=== PATIENT | male | born 1970 | race Caucasian/White ===

== ENCOUNTER 2018-06-02 11:49 | Inpatient (IN) | payer MEDICAID, SELFPAY ==
[2018-06-02] VITALS (12 sets, daily range): BP systolic 99–118; BP diastolic 60–67; PULSE 74–110; RESP 16–19; TEMP 37–39.4; O2SAT 93–98; BMI 27.7; BMI 27.8; BMI 27.5
--- NOTE | 2018-06-02 12:12 | RAD_ITS ---
STUDY: X-RAY CHEST REASON FOR EXAM: Male, 48 years old. One week history of vomiting. Fever. TECHNIQUE: PA and lateral views of the chest. COMPARISON: Comparison is made with prior study dated December 31, 2014. FINDINGS: Hyperinflation. There is evidence of infiltration in the superior segment of the left lower lobe. Radiographic follow-up until clearing is recommended. There is no demonstrated pleural abnormality. Normal size heart. Normal mediastinum and daria. Normal visualized pulmonary arteries. Normal visualized aortic arch and descending thoracic aorta. Normal visualized thoracic spine. Normal visualized ribs, clavicles, and shoulders. There is no demonstrated abnormality of the visualized soft tissue structures of the upper abdomen. RAD/Chest PA and Lateral IMPRESSION: Infiltration in the superior segment of the left lower lobe. Radiographic follow-up until clearing is recommended. Electronically Signed: Eliel Preston, at 13:10 EDT , Service support ,
[2018-06-02] MEDS: Ibuprofen 600 MG Tablet PO (12:25)
--- NOTE | 2018-06-02 13:39 | ED.VISSUMM ---
- ER Visit Summary Date of Service: 06/02/18 Chief Complaint: Fever History of Present Illness: The patient is a 48 M with fever which has been getting worse over the past week. It is associated with cough, headaches, and body aches. He tried to take Tylenol this morning but threw it up. Patient has a history of asthma and fibromyalgia. He is a smoker. Physical Examination: 101.3 degrees. Heart rate 110. Otherwise vitals normal. Patient appears unwell and uncomfortable but not toxic or in distress. HEENT exam is unremarkable. Heart is tachycardic but regular. Lungs are clear. Abdomen is soft and nontender. Skin appears normal. Test Results: Chest x-ray showed a left upper lobe pneumonia and his influenza test was negative. Emergency Department Course and Treatment: I was initially concerned the patient might have influenza, but his rapid test was negative and his x-ray did show an infiltrate. I reevaluated the patient after he had some Motrin and he had a continued fever and tachycardia. I was concerned he might be septic. I added on some labs as well as a fluid bolus and cultures. I treated him with a dose of Levaquin. Will reevaluate. Lactic acid was 1.1. White count 14.3 and sodium 134. Total bilirubin 2.0. Cultures pending. Patient's heart rate improved, but his mean arterial pressure ranged from 61 to the 80s. He appears well and is perfusing well. I asked him if he ever had low blood pressures and he said no. He is not treated for hypertension however. I ordered an additional 2 L fluid bolus. Although the patient appears well, he has a pneumonia and meets sepsis criteria and he has had some low blood pressures. I will contact the hospitalist for further care. Treatment Plan: As above Disposition: Admission Impression: 1. Community acquired pneumonia 2. Sepsis This note was generated with [employer] dictation software. It may contain incorrect words, spelling, and punctuation that were not noted in review of the chart prior to signing ED Disposition - Plan for ED Patient: Referrals: Raheem Reed DO [Primary Care Provider] -
[2018-06-02] MEDS: 0.9% Normal Saline 1,000 ML 999 ML IV ×3 (13:55→16:58)
[2018-06-02] MEDS: levoFLOXacin IV 750 MG/150 ML BAG 100 MG IV (13:55)
[2018-06-02 14:25] LABS: Absolute Lymphocyte Count 0.92 X10^3/ul (0.83-4.51); Absolute Neutrophil Count 11.9 X10^3/uL (2.0-7.7); Basophil# 0.03 X10^3/uL; Basophil% 0.2 % (0-1); Hematocrit 37.1 % (40-54); Hemoglobin 13.4 g/dl (13.0-16.5); Lymphocyte # 0.92 X10^3/ul (4.0); Lymphocyte % 6.4 % (19-41); Mean Corp Hgb Conc 36.1 g/gl (32-36); Mean Corpuscular Hgb 32.2 pg (27.0-32.0); Mean Corpuscular Volume 89.2 fL (80-94); Mean Platelet Vol. 9.6 fl (6.2-12.0); Monocyte# 1.43 X10^3/uL; Neutrophil # 11.87 X10^3/uL (2.7-7.7); Neutrophil % 83.1 % (47-70); Platelet Count 204 K/mm3 (150-450); RBC Distribution Width CV 12.6 % (11.6-14.6); RBC Distribution Width SD 40.9 fl (35.1-43.9); Red Blood Count 4.16 M/mm3 (4.6-6.2); White Blood Count 14.3 K/mm3 (4.4-11.0)
[2018-06-02 14:27] LABS: POSITIVE COUNT NO; POSITIVE DIFFERENTIAL NO; POSITIVE MORPHOLOGY NO
[2018-06-02 14:38] LABS: AST(SGOT) 17 U/L (15-37); Alanine Aminotransfer ALT/SGPT 30 U/L (16-61); Albumin, Serum 3.2 g/dL (3.2-5.0); Alkaline Phosphatase 71 U/L (45-117); Anion Gap 8 (5-15); BUN 10 mg/dL (7-18); BUN/Creat Ratio 11.4 RATIO (10-20); Calcium,Total 8.2 mg/dL (8.5-10.1); Chloride 101 mmol/L (98-107); Creatinine, Serum 0.88 mg/dL (0.70-1.30); EST Glomerular Filtration Rate 100 mL/min (>60); Est Glom Filt Rate - Afr Amer 121 mL/min (>60); Estimated Creatinine Clearance 104.89 ml/min; Globulin 3.2 g/dL (2.2-4.2); Glucose 103 mg/dL (74-106); Protein, Total 6.4 g/dL (6.4-8.2); Sodium Level 134 mmol/L (136-145)
[2018-06-02 14:41] LABS: Lactic Acid 1.1 mmol/L (0.4-2.0)
--- NOTE | 2018-06-02 16:00 | HP.PCM_ITS ---
Problem List (1) Community acquired pneumonia of left lower lobe of lung Status: Acute (2) Mild intermittent chronic asthma without complication Status: Chronic (3) Fibromyalgia Status: Chronic History of Present Illness Date of Admission: 06/02/18 Chief Complaint: URI symptoms for about 1 week The patient is a 48 year old M with history of chronic mild intermittent asthma on fluticasone and albuterol inhaler since childhood came to ED with 7 days history of fever, chills, dry cough, left-sided pleuritic chest pain and sore throat. This started about a week ago last Friday and got severe on Friday for which she went to urgent care and was sent home with instructions to go to ER if get worse. Patient again went to urgent care today as he felt more fever and chills and cough and was given Protonix, Zofran and enteric bacterial G panel was ordered. Then patient came to ED. He feels chest pain mainly on deep inspiration and cough. Patient denies previous history of pneumonia. Chest x-ray shows infiltrate in the superior segment of left lower lobe. In ED, patient was found febrile, T-max 102.4 Fahrenheit, Blood pressure was low 99/64 and 1 seen systolic 80s for which 3 L of normal saline bolus was ordered. Patient given Levaquin 750 mg IV 1 dose and further admitted. As per the patient, systolic blood pressure is well in 100s although he does not remember exactly. [] Past Medical History Past Medical History (Chronic Problems): Chronic Problems Mild intermittent chronic asthma without complication (Chronic) Fibromyalgia (Chronic) Allergies cat dander Allergy (Verified 06/02/18 15:38) itching, shortness of breath dog dander Allergy (Verified 06/02/18 15:38) Unknown bupropion HCl [From Wellbutrin] Adverse Reaction (Verified 06/02/18 15:27) anxiety montelukast [From Singulair] Adverse Reaction (Verified 06/02/18 15:27) MS-like symptoms, difficulty w/ balance and walking Home Medications: Ambulatory Orders Medication Instructions Recorded Albuterol Aerosols [Ventolin 2.5 mg INHALATION Q4H PRN PRN 06/02/18 Aerosols] Albuterol Inhaler [Ventolin Hfa 2 puff INHALATION Q4H PRN PRN 06/02/18 (SP)] Amitriptyline HCl [Elavil] 25 mg PO QHS 06/02/18 Cholecalciferol (VIT D3) [Vitamin 2,500 unit PO DAILY 06/02/18 D] Escitalopram Oxalate [Lexapro] 10 mg PO DAILY 06/02/18 Fluticasone Furoate [Arnuity 1 puff INHALATION QHS 06/02/18 Ellipta] Multivitamin [Multivitamins] 1 each PO DAILY 06/02/18 Ondansetron HCl [Zofran] 4 mg PO Q8H PRN PRN 06/02/18 Pantoprazole Sodium [Protonix] 40 mg PO DAILY 06/02/18 Smoking Status: Former smoker - *Family History Paternal History Items: COPD - Emphysema with history of heavy smoking Review of Systems Constitutional: Reports: Chills, Fever, Weakness. Denies: Weight Change HEENT: Reports: Nasal Congestion, Post Nasal Drip, Sore Throat. Denies: Head Aches, Sinus Congestion, Sinus Drainage Cardiovascular: Reports: Chest Pain. Denies: Palpitations Respiratory: Reports: Cough, Pleuritic Pain. Denies: Sputum production Gastrointestinal: Reports: Diarrhea - 1 or 2 instances of diarrhea in the last few days, Nausea, Vomiting. Denies: Abdominal Pain Genitourinary: Denies: Dysuria Musculoskeletal: Denies: Joint Pain, Joint Tenderness Skin: Denies: Rash, Wounds Neurological: Denies: Numbness, Tingling, Focal weakness Psychiatric: Denies: Anxiety, Depression, Homicidal Ideations, Suicidal Ideations Hematologic/ Lymphatic: Denies: Easy Bruising, Easy Bleeding VTE Information - Inpt Only VTE Present on Admission: No VTE Mechan Device Prophylaxis: None VTE Pharm Prophylaxis ordered?: Yes Patient Problems: Active and Suspected Problems Community acquired pneumonia of left lower lobe of lung (Acute) - Physical Exam General: Alert, Oriented x3, Cooperative HEENT: Atraumatic, PERRLA, EOMI, Normocephalic Neck: Supple, No JVD, Negative Carotid Bruits Lungs: Diminished - Air entry is diminished mainly in left posterior half of lung., Rales - Coarse crepitation present in left posterior half of lung Cardiovascular: Regular rate, Regular Rhythm, Normal S1, Normal S2, No murmurs Abdomen: Bowel Sounds Present, Soft, Non Tender, Non-Distended Extremities: No edema, Capillary Refill Less than 3 Seconds Skin: No rashes, No breakdown Musculoskeletal: No Tenderness to Palpation of Joints or Extremities, Arthritic Changes Neurological: Cranial nerves II-XII grossly intact Psych/Mental Status: Normal Affect, Appropriate Vital Signs Temp Pulse Resp BP Pulse Ox 99.3 F H 75 16 101/67 96 06/02/18 15:15 06/02/18 15:52 06/02/18 15:52 06/02/18 15:52 06/02/18 15:15 Oxygen Delivery Method Room Air Weight: 188 lb Body Mass Index (BMI) 27.7 Microbiology Past 72 Hours 06/02/18 12:30 Influenza Types A,B Direct FA ([facility]ARD) - Final Mucosa - Nose Laboratory Tests Past 24 Hrs 06/02/18 06/02/18 06/02/18 13:00 13:56 13:56 WBC 14.3 H RBC 4.16 L Hgb 13.4 Hct 37.1 L MCV 89.2 MCH 32.2 H MCHC 36.1 H RDW 12.6 RDW Differential 40.9 Plt Count 204 MPV 9.6 Immature Gran % (Auto) 0.300 Neut % (Auto) 83.1 H Lymph % (Auto) 6.4 L [place] % (Auto) 10.0 Eos % (Auto) 0.0 Baso % (Auto) 0.2 Absolute Neuts (auto) 11.9 H Absolute Lymphs (auto) 0.92 Total Counted Not Reportable Sodium 134 L Potassium 4.0 Chloride 101 Carbon Dioxide 25.0 Anion Gap 8 BUN 10 Creatinine 0.88 Estim Creat Clear Calc 104.89 Est GFR (MDRD) Af Amer 121 Est GFR (MDRD) Non-Af 100 BUN/Creatinine Ratio 11.4 Glucose 103 Lactic Acid 1.1 Calcium 8.2 L Total Bilirubin 2.00 H AST 17 ALT 30 Alkaline Phosphatase 71 Total Protein 6.4 Albumin 3.2 Globulin 3.2 Albumin/Globulin Ratio 1.0 Assessment/Plan All Active Problems Community acquired pneumonia of left lower lobe of lung (Acute) The patient is a 48 year old M with history of chronic mild intermittent asthma on fluticasone and albuterol inhaler since childhood came to ED with 7 days history of fever, chills, dry cough, left-sided pleuritic chest pain and sore throat. This started about a week ago last Friday and got severe on Friday for which she went to urgent care and was sent home with instructions to go to ER if get worse. Patient again went to urgent care today as he felt more fever and chills and cough and was given Protonix, Zofran and enteric bacterial G panel was ordered. Then patient came to ED. He feels chest pain mainly on deep inspiration and cough. Patient denies previous history of pneumonia. Chest x-ray shows infiltrate in the superior segment of left lower lobe. In ED, patient was found febrile, T-max 102.4 Fahrenheit, Blood pressure was low 99/64 and 1 seen systolic 80s for which 3 L of normal saline bolus was ordered. Patient given Levaquin 750 mg IV 1 dose and further admitted. As per the patient, systolic blood pressure is well in 100s although he does not remember exactly. [] 1. Severe sepsis (fever, tachypnea, leukocytosis with hypotension recovered with IV fluid) secondary to left lower lobe community-acquired pneumonia: Patient is being admitted in PCU with normal saline IV bolus running. Started on IV Rocephin and Zithromax. Bronchodilator as needed. Pneumonia workup including blood cultures x2, urinary antigens, sputum culture and UA. Respiratory panel ordered 2. Nausea/vomiting and diarrhea possible related to stomach flu/viral gastroenteritis: IV fluid resuscitation. Patient does not have abdominal pain and diarrhea has resolved. No GI bleed. 3. Chronic intermittent mild asthma: Hold fluticasone inhaler in view of pneumonia and severe sepsis. Bronchodilator as needed. Oxygen therapy to keep pulse ox more than 90%. 4. Fibromyalgia:, Mild anxiety and depression: Continue amitriptyline. Hold Lexapro Until patient is on Zithromax. 5. DVT prophylaxis: Lovenox 40 mg subcu daily Code Visit Inpatient E&M: 58848 In Hosp L3
--- NOTE | 2018-06-02 16:24 | EKG12_ITS ---
Test Reason : ADMISSION Blood Pressure : / mmHG Vent. Rate : 093 BPM Atrial Rate : 093 BPM P-R Int : 150 ms QRS Dur : 092 ms QT Int : 358 ms P-R-T Axes : 064 -05 004 degrees QTc Int : 445 ms Normal sinus rhythm Low voltage QRS Borderline ECG When compared with ECG of 20-JAN-2014 04:26, Nonspecific T wave abnormality now evident in Inferior leads Confirmed by MICHAEL GREENWOOD, NICKIE ([id number]), tape editor ADELAIDE DUKES ([id number]) on 06/08/2018 5:20:51 PM Referred By: MARIANELA Confirmed By:NICKIE RODRIGUEZ MD
[2018-06-02] MEDS: 0.9% Normal Saline 1,000 ML 150 ML IV (18:09)
[2018-06-02] MEDS: guaiFENesin 1,200 MG Tablet 1200 MG PO (18:20)
[2018-06-02] MEDS: oxyCODONE 5 MG Tablet PO (19:40)
[2018-06-02 19:49] LABS: Color, Urine Yellow (Yellow); Glucose, Dipstick Normal (Normal); Ketone-Dipstick Negative (Negative); Leukocyte Esterase-Dipstick Negative /ul (Negative); Nitrite-Dipstick Negative (Negative); Occult Blood-Urine 25 /ul (Negative); Protein-Dipstick Negative (Negative); Urine Bilirubin Dipstick Negative (Negative); Urine Clarity Clear (Clear); Urine Urobilinogen Normal (Normal); Urine pH 6.5 (5.0 - 8.0)
[2018-06-02] MEDS: Famotidine 20 MG Tablet PO (21:13)
[2018-06-02] MEDS: Acetaminophen 325 MG Tablet 650 MG PO (21:13)
[2018-06-02] MEDS: Amitriptyline 25 MG Tablet PO (21:13)
[2018-06-03] MEDS: 0.9% Normal Saline 1,000 ML 150 ML IV ×4 (00:25→20:45)
[2018-06-03 02:56] VITALS: BP 121/76; PULSE 91; RESP 16; TEMP 37.1; O2SAT 93
[2018-06-03] MEDS: oxyCODONE 5 MG Tablet PO ×2 (05:34→15:31)
[2018-06-03] MEDS: Enoxaparin 40 MG/0.4 ML Syringe SC (05:35)
[2018-06-03 08:26] VITALS: BP 122/73; PULSE 90; RESP 16; TEMP 37.7; O2SAT 98
[2018-06-03] MEDS: Multivitamins,Therapeutic Tablet 1 TABLET PO (08:40)
[2018-06-03] MEDS: guaiFENesin 1,200 MG Tablet 1200 MG PO ×2 (08:40→21:45)
[2018-06-03] MEDS: Famotidine 20 MG Tablet PO ×2 (08:40→21:45)
[2018-06-03] MEDS: Ceftriaxone 1 GM/50 ML BAG IV (08:41)
[2018-06-03] MEDS: Oseltamivir Phosphate 75 MG Capsule PO ×2 (10:59→21:45)
[2018-06-03 11:42] LABS: Absolute Neutrophil Count 9.4 X10^3/uL (2.0-7.7); Basophil# 0.04 X10^3/uL; Basophil% 0.3 % (0-1); Eosinophil# 0.03 X10^3/uL; Eosinophils% 0.2 % (0-5); Hematocrit 33.7 % (40-54); Hemoglobin 11.4 g/dl (13.0-16.5); Lymphocyte % 13.8 % (19-41); Mean Corp Hgb Conc 33.8 g/gl (32-36); Mean Corpuscular Hgb 30.4 pg (27.0-32.0); Mean Corpuscular Volume 89.9 fL (80-94); Mean Platelet Vol. 9.2 fl (6.2-12.0); Monocyte# 1.08 X10^3/uL; Monocyte% 8.8 % (0-10); Neutrophil # 9.41 X10^3/uL (2.7-7.7); Neutrophil % 76.5 % (47-70); Platelet Count 216 K/mm3 (150-450); RBC Distribution Width SD 42.8 fl (35.1-43.9); Red Blood Count 3.75 M/mm3 (4.6-6.2); White Blood Count 12.3 K/mm3 (4.4-11.0)
[2018-06-03 11:43] LABS: POSITIVE COUNT NO; POSITIVE DIFFERENTIAL NO; POSITIVE MORPHOLOGY NO
[2018-06-03 11:57] LABS: Anion Gap 3 (5-15); BUN 7 mg/dL (7-18); BUN/Creat Ratio 10.7 RATIO (10-20); Calcium,Total 7.4 mg/dL (8.5-10.1); Chloride 107 mmol/L (98-107); Creatinine, Serum 0.66 mg/dL (0.70-1.30); EST Glomerular Filtration Rate 139 mL/min (>60); Est Glom Filt Rate - Afr Amer 169 mL/min (>60); Estimated Creatinine Clearance 139.85 ml/min; Glucose 127 mg/dL (74-106); Magnesium 1.8 mg/dL (1.6-2.6); Potassium 3.4 mmol/L (3.5-5.1); Sodium Level 136 mmol/L (136-145)
--- NOTE | 2018-06-03 12:46 | PCM.PROGNOTE ---
<Harsha Gastelum - Last Filed: 06/03/18 12:46> Patient Problems: Active and Suspected Problems Community acquired pneumonia of left lower lobe of lung (Acute) Subjective: Pt with ongoing fevers, last 100.8 last night 2156, Tmax 103. Nonproductive cough. Mild dyspnea, not requiring O2. No CP. Fatigue and body aches continue. No LE edema. GI symptoms resolved. - Physical Exam General: Alert, Oriented x3, Cooperative HEENT: Atraumatic, PERRLA, EOMI, Normocephalic Neck: Supple, No JVD, Negative Carotid Bruits Lungs: Rales Cardiovascular: Regular rate, No murmurs Abdomen: Bowel Sounds Present, Soft, Non Tender Extremities: No edema, Capillary Refill Less than 3 Seconds Skin: No rashes, No breakdown Musculoskeletal: No Tenderness to Palpation of Joints or Extremities Neurological: Cranial nerves II-XII grossly intact Psych/Mental Status: Normal Affect, Appropriate, Alert and oriented to time, place, person, mood and affect Vital Signs Temp Pulse Resp BP Pulse Ox 99.8 F H 90 16 122/73 H 98 06/03/18 08:26 06/03/18 08:26 06/03/18 08:26 06/03/18 08:26 06/03/18 08:26 Oxygen Delivery Method Room Air Weight: 186 lb 4.8 oz Body Mass Index (BMI) 27.5 Intake and Output for Last 24 Hours 06/01/18 06/02/18 06/03/18 23:59 23:59 23:59 Intake Total 3301 / 3301 2046 Balance 3301 / 3301 2046 Microbiology Past 72 Hours 06/02/18 20:30 Gram Stain - Final Sputum, Expectorated/Coughed Respiratory Culture - Preliminary Appears to be normal respiratory chandler. Further studies to follow. 06/02/18 17:15 Respiratory Panel (PCR) - Final Mucosa - Nasopharyngeal Influenza A (Subtype H1) 06/02/18 19:20 Legionella Antigen - Final Urine, Random 06/02/18 19:20 Streptococcus pneumoniae Antigen (M - Final Urine, Clean Catch 06/02/18 12:30 Influenza Types A,B Direct FA ([facility]) - Final Mucosa - Nose Laboratory Tests Past 24 Hrs 06/02/18 06/02/18 06/02/18 13:00 13:56 13:56 WBC 14.3 H RBC 4.16 L Hgb 13.4 Hct 37.1 L MCV 89.2 MCH 32.2 H MCHC 36.1 H RDW 12.6 RDW Differential 40.9 Plt Count 204 MPV 9.6 Immature Gran % (Auto) 0.300 Neut % (Auto) 83.1 H Lymph % (Auto) 6.4 L [place] % (Auto) 10.0 Eos % (Auto) 0.0 Baso % (Auto) 0.2 Absolute Neuts (auto) 11.9 H Absolute Lymphs (auto) 0.92 Total Counted Not Reportable Sodium 134 L Potassium 4.0 Chloride 101 Carbon Dioxide 25.0 Anion Gap 8 BUN 10 Creatinine 0.88 Estim Creat Clear Calc 104.89 Est GFR (MDRD) Af Amer 121 Est GFR (MDRD) Non-Af 100 BUN/Creatinine Ratio 11.4 Glucose 103 Lactic Acid 1.1 Calcium 8.2 L Magnesium Total Bilirubin 2.00 H AST 17 ALT 30 Alkaline Phosphatase 71 Total Protein 6.4 Albumin 3.2 Globulin 3.2 Albumin/Globulin Ratio 1.0 Urine Color Urine Clarity Urine pH Ur Specific [place] Urine Protein Urine Glucose (UA) Urine Ketones Urine Occult Blood Urine Nitrite Urine Bilirubin Urine Urobilinogen Ur Leukocyte Esterase 06/02/18 06/03/18 06/03/18 19:20 11:22 11:22 WBC 12.3 H RBC 3.75 L Hgb 11.4 L Hct 33.7 L MCV 89.9 MCH 30.4 MCHC 33.8 RDW 13.0 RDW Differential 42.8 Plt Count 216 MPV 9.2 Immature Gran % (Auto) 0.400 Neut % (Auto) 76.5 H Lymph % (Auto) 13.8 L [place] % (Auto) 8.8 Eos % (Auto) 0.2 Baso % (Auto) 0.3 Absolute Neuts (auto) 9.4 H Absolute Lymphs (auto) 1.70 Total Counted Not Reportable Sodium 136 Potassium 3.4 L Chloride 107 Carbon Dioxide 26.0 Anion Gap 3 L BUN 7 Creatinine 0.66 L Estim Creat Clear Calc 139.85 Est GFR (MDRD) Af Amer 169 Est GFR (MDRD) Non-Af 139 BUN/Creatinine Ratio 10.7 Glucose 127 H Lactic Acid Calcium 7.4 L Magnesium 1.8 Total Bilirubin AST ALT Alkaline Phosphatase Total Protein Albumin Globulin Albumin/Globulin Ratio Urine Color Yellow Urine Clarity Clear Urine pH 6.5 Ur Specific [place] 1.010 Urine Protein Negative Urine Glucose (UA) Normal Urine Ketones Negative Urine Occult Blood 25 H Urine Nitrite Negative Urine Bilirubin Negative Urine Urobilinogen Normal Ur Leukocyte Esterase Negative Medical Necessity - Tobacco Use Smoking Status: Former smoker Tobacco Use: Cigarettes, Pipe Assessment/Plan All Active Problems Community acquired pneumonia of left lower lobe of lung (Acute) 1. Acute sepsis 2/2 Influenza A and community acquired pna - continue rocephin/azithro/tamiflu. Got 1 dose levaquin in the ER. WBCs improved. Fevers last night. Sputum with normal resp chandler, urine antigens neg, blood cultures pending, no sputum provided. Provide PEP therapy. 2. Low K - replete, supplement mag (1.8) 3. Anx/Depression/Fibromyalgia- lexapro, elavil 4. Hx Asthma - continue aerosols. DVT ppx: lovenox DC planning: likely home tomorrow with no needs This patient was seen by Harsha Gastelum PA-C under the supervision of Dr. Rodriguez <Lex Rodriguez - Last Filed: 06/03/18 13:56> - Physical Exam Vital Signs Temp Pulse Resp BP Pulse Ox 99.8 F H 90 16 122/73 H 98 06/03/18 08:26 06/03/18 08:26 06/03/18 08:26 06/03/18 08:26 06/03/18 08:26 Oxygen Delivery Method Room Air Weight: 84.504 kg Body Mass Index (BMI) 27.5 Intake and Output for Last 24 Hours 06/01/18 06/02/18 06/03/18 23:59 23:59 23:59 Intake Total 3301 / 3301 2046 Balance 3301 / 3301 2046 Microbiology Past 72 Hours 06/02/18 20:30 Gram Stain - Final Sputum, Expectorated/Coughed Respiratory Culture - Preliminary Appears to be normal respiratory chandler. Further studies to follow. 06/02/18 17:15 Respiratory Panel (PCR) - Final Mucosa - Nasopharyngeal Influenza A (Subtype H1) 06/02/18 19:20 Legionella Antigen - Final Urine, Random 06/02/18 19:20 Streptococcus pneumoniae Antigen (M - Final Urine, Clean Catch 06/02/18 12:30 Influenza Types A,B Direct FA (HOWARD) - Final Mucosa - Nose Laboratory Tests Past 24 Hrs 06/02/18 06/02/18 06/02/18 13:00 13:56 13:56 WBC 14.3 H RBC 4.16 L Hgb 13.4 Hct 37.1 L MCV 89.2 MCH 32.2 H MCHC 36.1 H RDW 12.6 RDW Differential 40.9 Plt Count 204 MPV 9.6 Immature Gran % (Auto) 0.300 Neut % (Auto) 83.1 H Lymph % (Auto) 6.4 L [place] % (Auto) 10.0 Eos % (Auto) 0.0 Baso % (Auto) 0.2 Absolute Neuts (auto) 11.9 H Absolute Lymphs (auto) 0.92 Total Counted Not Reportable Sodium 134 L Potassium 4.0 Chloride 101 Carbon Dioxide 25.0 Anion Gap 8 BUN 10 Creatinine 0.88 Estim Creat Clear Calc 104.89 Est GFR (MDRD) Af Amer 121 Est GFR (MDRD) Non-Af 100 BUN/Creatinine Ratio 11.4 Glucose 103 Lactic Acid 1.1 Calcium 8.2 L Magnesium Total Bilirubin 2.00 H AST 17 ALT 30 Alkaline Phosphatase 71 Total Protein 6.4 Albumin 3.2 Globulin 3.2 Albumin/Globulin Ratio 1.0 Urine Color Urine Clarity Urine pH Ur Specific [place] Urine Protein Urine Glucose (UA) Urine Ketones Urine Occult Blood Urine Nitrite Urine Bilirubin Urine Urobilinogen Ur Leukocyte Esterase 06/02/18 06/03/18 06/03/18 19:20 11:22 11:22 WBC 12.3 H RBC 3.75 L Hgb 11.4 L Hct 33.7 L MCV 89.9 MCH 30.4 MCHC 33.8 RDW 13.0 RDW Differential 42.8 Plt Count 216 MPV 9.2 Immature Gran % (Auto) 0.400 Neut % (Auto) 76.5 H Lymph % (Auto) 13.8 L [place] % (Auto) 8.8 Eos % (Auto) 0.2 Baso % (Auto) 0.3 Absolute Neuts (auto) 9.4 H Absolute Lymphs (auto) 1.70 Total Counted Not Reportable Sodium 136 Potassium 3.4 L Chloride 107 Carbon Dioxide 26.0 Anion Gap 3 L BUN 7 Creatinine 0.66 L Estim Creat Clear Calc 139.85 Est GFR (MDRD) Af Amer 169 Est GFR (MDRD) Non-Af 139 BUN/Creatinine Ratio 10.7 Glucose 127 H Lactic Acid Calcium 7.4 L Magnesium 1.8 Total Bilirubin AST ALT Alkaline Phosphatase Total Protein Albumin Globulin Albumin/Globulin Ratio Urine Color Yellow Urine Clarity Clear Urine pH 6.5 Ur Specific [place] 1.010 Urine Protein Negative Urine Glucose (UA) Normal Urine Ketones Negative Urine Occult Blood 25 H Urine Nitrite Negative Urine Bilirubin Negative Urine Urobilinogen Normal Ur Leukocyte Esterase Negative Assessment/Plan This patient was seen in conjunction with Harsha Gastelum PA-C . I have independently interviewed and examined the patient and reviewed pertinent historical, laboratory, and other data. Please refer to Harsha Gastelum PA-C note for details of this patient's presentation, findings, and recommendations. I have reviewed Harsha Gastelum PA-C note and concur with documented findings. In brief, patient is a 8-year-old gentleman with history of mild intermittent asthma who presented with a week history of progressive generalized weakness associated with fever chills since assessment was consistent with sepsis secondary to influenza A with superimposed pneumonia Physical Examination: GENERAL: cooperative HEENT: Atraumatic; moist oral mucosa EYES; Anicteric, Normal Conjunctiva NECK; supple, normal thyroid, no distended JVD. RESPIRATORY: Diminished to auscultation bilaterally, CARDIOVASCULAR: Regular S1 S2, no audible murmurs GI: soft, non-tender, normoactive bowel sounds, : No Renal angle tenderness; EXTREMITIES: No edema, no clubbing, no cyanosis. PSYCH; Normal affect Assessment: 1. Secondary to acute influenza A infection and community-acquired pneumonia 2. Acute influenza A infection 3. Community acquired pneumonia 4. Chronic pain syndrome 5. Depression with anxiety 6. Mild intermittent asthma Recommendations: 1. I have discussed the results of my overview and impressions with the patient 2. Options for management were reviewed Clinical Impression(s) from Imaging Studies Chest X-Ray 06/02/18 12:12 IMPRESSION: Infiltration in the superior segment of the left lower lobe. Radiographic follow-up until clearing is recommended. Electronically Signed: Eliel Preston, at 13:10 EDT , Service support , Active Medications Acetaminophen (Tylenol) 650 mg PO Q4H PRN PRN PRN Reason: Mild-Moderate Pain/RICARDO/fever Last Admin: 06/02/18 21:13 Dose: 650 mg Albuterol Sulfate (Ventolin Aerosols) 2.5 mg INHALATION Q2H PRN PRN PRN Reason: SHORTNESS OF BREATH Amitriptyline HCl (Elavil) 25 mg PO QHS [facility] Last Admin: 06/02/18 21:13 Dose: 25 mg Cholecalciferol (Vitamin D) 2,500 unit PO DAILYCM [facility] Last Admin: 06/03/18 08:40 Dose: 2,500 unit Enoxaparin Sodium (Lovenox) 40 mg SC DAILY@0600 [facility] Last Admin: 06/03/18 05:35 Dose: 40 mg Famotidine (Pepcid) 20 mg PO BID [facility] Last Admin: 06/03/18 08:40 Dose: 20 mg Guaifenesin (Mucinex) 1,200 mg PO BID [facility] Last Admin: 06/03/18 08:40 Dose: 1,200 mg Sodium Chloride () 1,000 mls @ 150 mls/hr IV .Q6H40M [facility] Last Admin: 06/03/18 13:55 Dose: 150 mls/hr Azithromycin 500 mg/ Dextrose 255 mls @ 250 mls/hr IV Q24 [facility] Stop: 06/05/18 11:02 Last Admin: 06/03/18 10:59 Dose: 250 mls/hr Ceftriaxone Sodium (Rocephin) 1 gm in 50 mls @ 100 mls/hr IV Q24 [facility] Last Admin: 06/03/18 08:41 Dose: 100 mls/hr Multivitamins (Multivitamin) 1 tablet PO DAILY@0800 [facility] Last Admin: 06/03/18 08:40 Dose: 1 tablet Nutritional Formula (Lactose Free) (Ensure Enlive) 120 ml PO 4X/DAY [facility] Last Admin: 06/03/18 08:40 Dose: 120 ml Ondansetron HCl (Zofran) 4 mg IV Q8H PRN PRN PRN Reason: NAUSEA Oseltamivir Phosphate (Tamiflu) 75 mg PO BID [facility] Stop: 06/07/18 22:01 Last Admin: 06/03/18 10:59 Dose: 75 mg Oxycodone HCl (Oxyir) 5 mg PO Q4H PRN PRN PRN Reason: Moderate Pain (pain scale 4-5) Last Admin: 06/03/18 05:34 Dose: 5 mg Sodium Chloride () 5 - 15 ml IV UD PRN PRN Reason: SALINE FLUSH Code Visit Inpatient E&M: 85898 Subs Hosp L3
--- NOTE | 2018-06-03 12:52 | PN_ITS ---
<Harsha Gastelum - Last Filed: 06/03/18 12:46> Patient Problems: Active and Suspected Problems Community acquired pneumonia of left lower lobe of lung (Acute) Subjective: Pt with ongoing fevers, last 100.8 last night 2156, Tmax 103. Nonproductive cough. Mild dyspnea, not requiring O2. No CP. Fatigue and body aches continue. No LE edema. GI symptoms resolved. - Physical Exam General: Alert, Oriented x3, Cooperative HEENT: Atraumatic, PERRLA, EOMI, Normocephalic Neck: Supple, No JVD, Negative Carotid Bruits Lungs: Rales Cardiovascular: Regular rate, No murmurs Abdomen: Bowel Sounds Present, Soft, Non Tender Extremities: No edema, Capillary Refill Less than 3 Seconds Skin: No rashes, No breakdown Musculoskeletal: No Tenderness to Palpation of Joints or Extremities Neurological: Cranial nerves II-XII grossly intact Psych/Mental Status: Normal Affect, Appropriate, Alert and oriented to time, place, person, mood and affect Vital Signs Temp Pulse Resp BP Pulse Ox 99.8 F H 90 16 122/73 H 98 06/03/18 08:26 06/03/18 08:26 06/03/18 08:26 06/03/18 08:26 06/03/18 08:26 Oxygen Delivery Method Room Air Weight: 186 lb 4.8 oz Body Mass Index (BMI) 27.5 Intake and Output for Last 24 Hours 06/01/18 06/02/18 06/03/18 23:59 23:59 23:59 Intake Total 3301 / 3301 2046 Balance 3301 / 3301 2046 Microbiology Past 72 Hours 06/02/18 20:30 Gram Stain - Final Sputum, Expectorated/Coughed Respiratory Culture - Preliminary Appears to be normal respiratory chandler. Further studies to follow. 06/02/18 17:15 Respiratory Panel (PCR) - Final Mucosa - Nasopharyngeal Influenza A (Subtype H1) 06/02/18 19:20 Legionella Antigen - Final Urine, Random 06/02/18 19:20 Streptococcus pneumoniae Antigen (M - Final Urine, Clean Catch 06/02/18 12:30 Influenza Types A,B Direct FA (HOWARD) - Final Mucosa - Nose Laboratory Tests Past 24 Hrs 06/02/18 06/02/18 06/02/18 13:00 13:56 13:56 WBC 14.3 H RBC 4.16 L Hgb 13.4 Hct 37.1 L MCV 89.2 MCH 32.2 H MCHC 36.1 H RDW 12.6 RDW Differential 40.9 Plt Count 204 MPV 9.6 Immature Gran % (Auto) 0.300 Neut % (Auto) 83.1 H Lymph % (Auto) 6.4 L [place] % (Auto) 10.0 Eos % (Auto) 0.0 Baso % (Auto) 0.2 Absolute Neuts (auto) 11.9 H Absolute Lymphs (auto) 0.92 Total Counted Not Reportable Sodium 134 L Potassium 4.0 Chloride 101 Carbon Dioxide 25.0 Anion Gap 8 BUN 10 Creatinine 0.88 Estim Creat Clear Calc 104.89 Est GFR (MDRD) Af Amer 121 Est GFR (MDRD) Non-Af 100 BUN/Creatinine Ratio 11.4 Glucose 103 Lactic Acid 1.1 Calcium 8.2 L Magnesium Total Bilirubin 2.00 H AST 17 ALT 30 Alkaline Phosphatase 71 Total Protein 6.4 Albumin 3.2 Globulin 3.2 Albumin/Globulin Ratio 1.0 Urine Color Urine Clarity Urine pH Ur Specific [place] Urine Protein Urine Glucose (UA) Urine Ketones Urine Occult Blood Urine Nitrite Urine Bilirubin Urine Urobilinogen Ur Leukocyte Esterase 06/02/18 06/03/18 06/03/18 19:20 11:22 11:22 WBC 12.3 H RBC 3.75 L Hgb 11.4 L Hct 33.7 L MCV 89.9 MCH 30.4 MCHC 33.8 RDW 13.0 RDW Differential 42.8 Plt Count 216 MPV 9.2 Immature Gran % (Auto) 0.400 Neut % (Auto) 76.5 H Lymph % (Auto) 13.8 L [place] % (Auto) 8.8 Eos % (Auto) 0.2 Baso % (Auto) 0.3 Absolute Neuts (auto) 9.4 H Absolute Lymphs (auto) 1.70 Total Counted Not Reportable Sodium 136 Potassium 3.4 L Chloride 107 Carbon Dioxide 26.0 Anion Gap 3 L BUN 7 Creatinine 0.66 L Estim Creat Clear Calc 139.85 Est GFR (MDRD) Af Amer 169 Est GFR (MDRD) Non-Af 139 BUN/Creatinine Ratio 10.7 Glucose 127 H Lactic Acid Calcium 7.4 L Magnesium 1.8 Total Bilirubin AST ALT Alkaline Phosphatase Total Protein Albumin Globulin Albumin/Globulin Ratio Urine Color Yellow Urine Clarity Clear Urine pH 6.5 Ur Specific [place] 1.010 Urine Protein Negative Urine Glucose (UA) Normal Urine Ketones Negative Urine Occult Blood 25 H Urine Nitrite Negative Urine Bilirubin Negative Urine Urobilinogen Normal Ur Leukocyte Esterase Negative Medical Necessity - Tobacco Use Smoking Status: Former smoker Tobacco Use: Cigarettes, Pipe Assessment/Plan All Active Problems Community acquired pneumonia of left lower lobe of lung (Acute) 1. Acute sepsis 2/2 Influenza A and community acquired pna - continue rocephin/azithro/tamiflu. Got 1 dose levaquin in the ER. WBCs improved. Fevers last night. Sputum with normal resp chandler, urine antigens neg, blood cultures pending, no sputum provided. Provide PEP therapy. 2. Low K - replete, supplement mag (1.8) 3. Anx/Depression/Fibromyalgia- lexapro, elavil 4. Hx Asthma - continue aerosols. DVT ppx: lovenox DC planning: likely home tomorrow with no needs This patient was seen by Harsha Gastelum PA-C under the supervision of Dr. Rodriguez <Lex Rodriguez - Last Filed: 06/03/18 13:56> - Physical Exam Vital Signs Temp Pulse Resp BP Pulse Ox 99.8 F H 90 16 122/73 H 98 06/03/18 08:26 06/03/18 08:26 06/03/18 08:26 06/03/18 08:26 06/03/18 08:26 Oxygen Delivery Method Room Air Weight: 84.504 kg Body Mass Index (BMI) 27.5 Intake and Output for Last 24 Hours 06/01/18 06/02/18 06/03/18 23:59 23:59 23:59 Intake Total 3301 / 3301 2046 Balance 3301 / 3301 2046 Microbiology Past 72 Hours 06/02/18 20:30 Gram Stain - Final Sputum, Expectorated/Coughed Respiratory Culture - Preliminary Appears to be normal respiratory chandler. Further studies to follow. 06/02/18 17:15 Respiratory Panel (PCR) - Final Mucosa - Nasopharyngeal Influenza A (Subtype H1) 06/02/18 19:20 Legionella Antigen - Final Urine, Random 06/02/18 19:20 Streptococcus pneumoniae Antigen (M - Final Urine, Clean Catch 06/02/18 12:30 Influenza Types A,B Direct FA (HOWARD) - Final Mucosa - Nose Laboratory Tests Past 24 Hrs 06/02/18 06/02/18 06/02/18 13:00 13:56 13:56 WBC 14.3 H RBC 4.16 L Hgb 13.4 Hct 37.1 L MCV 89.2 MCH 32.2 H MCHC 36.1 H RDW 12.6 RDW Differential 40.9 Plt Count 204 MPV 9.6 Immature Gran % (Auto) 0.300 Neut % (Auto) 83.1 H Lymph % (Auto) 6.4 L [place] % (Auto) 10.0 Eos % (Auto) 0.0 Baso % (Auto) 0.2 Absolute Neuts (auto) 11.9 H Absolute Lymphs (auto) 0.92 Total Counted Not Reportable Sodium 134 L Potassium 4.0 Chloride 101 Carbon Dioxide 25.0 Anion Gap 8 BUN 10 Creatinine 0.88 Estim Creat Clear Calc 104.89 Est GFR (MDRD) Af Amer 121 Est GFR (MDRD) Non-Af 100 BUN/Creatinine Ratio 11.4 Glucose 103 Lactic Acid 1.1 Calcium 8.2 L Magnesium Total Bilirubin 2.00 H AST 17 ALT 30 Alkaline Phosphatase 71 Total Protein 6.4 Albumin 3.2 Globulin 3.2 Albumin/Globulin Ratio 1.0 Urine Color Urine Clarity Urine pH Ur Specific [place] Urine Protein Urine Glucose (UA) Urine Ketones Urine Occult Blood Urine Nitrite Urine Bilirubin Urine Urobilinogen Ur Leukocyte Esterase 06/02/18 06/03/18 06/03/18 19:20 11:22 11:22 WBC 12.3 H RBC 3.75 L Hgb 11.4 L Hct 33.7 L MCV 89.9 MCH 30.4 MCHC 33.8 RDW 13.0 RDW Differential 42.8 Plt Count 216 MPV 9.2 Immature Gran % (Auto) 0.400 Neut % (Auto) 76.5 H Lymph % (Auto) 13.8 L [place] % (Auto) 8.8 Eos % (Auto) 0.2 Baso % (Auto) 0.3 Absolute Neuts (auto) 9.4 H Absolute Lymphs (auto) 1.70 Total Counted Not Reportable Sodium 136 Potassium 3.4 L Chloride 107 Carbon Dioxide 26.0 Anion Gap 3 L BUN 7 Creatinine 0.66 L Estim Creat Clear Calc 139.85 Est GFR (MDRD) Af Amer 169 Est GFR (MDRD) Non-Af 139 BUN/Creatinine Ratio 10.7 Glucose 127 H Lactic Acid Calcium 7.4 L Magnesium 1.8 Total Bilirubin AST ALT Alkaline Phosphatase Total Protein Albumin Globulin Albumin/Globulin Ratio Urine Color Yellow Urine Clarity Clear Urine pH 6.5 Ur Specific [place] 1.010 Urine Protein Negative Urine Glucose (UA) Normal Urine Ketones Negative Urine Occult Blood 25 H Urine Nitrite Negative Urine Bilirubin Negative Urine Urobilinogen Normal Ur Leukocyte Esterase Negative Assessment/Plan This patient was seen in conjunction with Harsha Gastelum PA-C . I have independently interviewed and examined the patient and reviewed pertinent historical, laboratory, and other data. Please refer to Harsha Gastelum PA-C note for details of this patient's presentation, findings, and recommendations. I have reviewed Harsha Gastelum PA-C note and concur with documented findings. In brief, patient is a 8-year-old gentleman with history of mild intermittent asthma who presented with a week history of progressive generalized weakness associated with fever chills since assessment was consistent with sepsis secondary to influenza A with superimposed pneumonia Physical Examination: GENERAL: cooperative HEENT: Atraumatic; moist oral mucosa EYES; Anicteric, Normal Conjunctiva NECK; supple, normal thyroid, no distended JVD. RESPIRATORY: Diminished to auscultation bilaterally, CARDIOVASCULAR: Regular S1 S2, no audible murmurs GI: soft, non-tender, normoactive bowel sounds, : No Renal angle tenderness; EXTREMITIES: No edema, no clubbing, no cyanosis. PSYCH; Normal affect Assessment: 1. Secondary to acute influenza A infection and community-acquired pneumonia 2. Acute influenza A infection 3. Community acquired pneumonia 4. Chronic pain syndrome 5. Depression with anxiety 6. Mild intermittent asthma Recommendations: 1. I have discussed the results of my overview and impressions with the patient 2. Options for management were reviewed Clinical Impression(s) from Imaging Studies Chest X-Ray 06/02/18 12:12 IMPRESSION: Infiltration in the superior segment of the left lower lobe. Radiographic follow-up until clearing is recommended. Electronically Signed: Eliel Preston, at 13:10 EDT , Service support , Active Medications Acetaminophen (Tylenol) 650 mg PO Q4H PRN PRN PRN Reason: Mild-Moderate Pain/RICARDO/fever Last Admin: 06/02/18 21:13 Dose: 650 mg Albuterol Sulfate (Ventolin Aerosols) 2.5 mg INHALATION Q2H PRN PRN PRN Reason: SHORTNESS OF BREATH Amitriptyline HCl (Elavil) 25 mg PO QHS [facility] Last Admin: 06/02/18 21:13 Dose: 25 mg Cholecalciferol (Vitamin D) 2,500 unit PO DAILYCM [facility] Last Admin: 06/03/18 08:40 Dose: 2,500 unit Enoxaparin Sodium (Lovenox) 40 mg SC DAILY@0600 [facility] Last Admin: 06/03/18 05:35 Dose: 40 mg Famotidine (Pepcid) 20 mg PO BID [facility] Last Admin: 06/03/18 08:40 Dose: 20 mg Guaifenesin (Mucinex) 1,200 mg PO BID [facility] Last Admin: 06/03/18 08:40 Dose: 1,200 mg Sodium Chloride () 1,000 mls @ 150 mls/hr IV .Q6H40M [facility] Last Admin: 06/03/18 13:55 Dose: 150 mls/hr Azithromycin 500 mg/ Dextrose 255 mls @ 250 mls/hr IV Q24 [facility] Stop: 06/05/18 11:02 Last Admin: 06/03/18 10:59 Dose: 250 mls/hr Ceftriaxone Sodium (Rocephin) 1 gm in 50 mls @ 100 mls/hr IV Q24 [facility] Last Admin: 06/03/18 08:41 Dose: 100 mls/hr Multivitamins (Multivitamin) 1 tablet PO DAILY@0800 [facility] Last Admin: 06/03/18 08:40 Dose: 1 tablet Nutritional Formula (Lactose Free) (Ensure Enlive) 120 ml PO 4X/DAY [facility] Last Admin: 06/03/18 08:40 Dose: 120 ml Ondansetron HCl (Zofran) 4 mg IV Q8H PRN PRN PRN Reason: NAUSEA Oseltamivir Phosphate (Tamiflu) 75 mg PO BID [facility] Stop: 06/07/18 22:01 Last Admin: 06/03/18 10:59 Dose: 75 mg Oxycodone HCl (Oxyir) 5 mg PO Q4H PRN PRN PRN Reason: Moderate Pain (pain scale 4-5) Last Admin: 06/03/18 05:34 Dose: 5 mg Sodium Chloride () 5 - 15 ml IV UD PRN PRN Reason: SALINE FLUSH Code Visit Inpatient E&M: 00282 Subs Hosp L3
--- NOTE | 2018-06-03 13:09 | CASEMGMT ---
RANDY NESS assessment: Face to Face with patient for initial transition planning/care coordination assessment. RANDY NESS introduced self and role at [facility], pt voices understanding and consents to assessment at this time. Pt is sitting up in bed in no distress at this time. Pt is A/Ox4 at this time and answers all questions appropriately at this time. Care providers, pharmacy, and demographics verified at this time. PCP: Derek Specialists: Jordin rheum; Joanne Bennett, manager home healthcare Preferred [facility]acy: [facility] Insurance: [facility] Prescription Benefit: [facility] Living Will/HPOA: Pt states does not have LW/HPOA and declines info at this time. LNOK: Jennyarchana Chung, sig other Living Arrangements: Pt states lives with sig other in split level home and states no concerns at home at this time. Pt states is normally independent with ADL's. Transportation: Pt states sig other drives d/t pt having 'double vision' and states no transportation concerns at this time. DME/HHC: Pt states no current DME or need for any at this time. Pt states no hx of HHC or SNF in the past. Pt states no concerns with going home at time of discharge. Pt states is currently unemployed. Pt states does not smoke or drink ETOH. Pt states no further concerns/needs at this time. CM to follow for any further discharge planning/needs. Advised pt to ask for CM if any further questions/concerns/needs arise, voices understanding. Pt Goal: Home Plan[place] RANDY NESS
[2018-06-03] MEDS: Magnesium Oxide 400 MG Tablet 800 MG PO (13:56)
[2018-06-03 14:25] VITALS: BP 119/81; PULSE 91; RESP 18; TEMP 37.6; O2SAT 94
--- NOTE | 2018-06-03 14:50 | CHAPLAIN ---
Type of Pastoral Visit _x__ Initial Visit ___ Follow-up Visit ___ On-call Visit ___ General Patient Visit ___ Spiritual Assessment ___ Family Conference ___ Bereavement ___ Rapid Response ___ Code Blue ___ Other (describe below) Pastoral Care Referral From _x__ Patient ___ Family ___ Nurse ___ Physician ___ Instructor Industrial Design ___ Environmental Protection Geologist ___ Other (describe below) Sacrament/Intervention _x__ Active listening ___ Anointing ___ Religion ___ Bereavement ___ Communion _x__ Olivia exploration ___ _x__ Life review _x__ Prayer ___ Reconciliation ___ Sacrament of Sick _x__ Supportive presence ___ Wedding ___ Other (describe below) Pastoral Comments long talk included olivia exploration and the Baptism mormon; 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
[2018-06-03] MEDS: Acetaminophen 325 MG Tablet 650 MG PO (15:30)
[2018-06-03 17:46] VITALS: BP 112/63; PULSE 86; RESP 18; TEMP 36.8; O2SAT 94
[2018-06-03 21:42] VITALS: BP 128/85; PULSE 78; RESP 18; TEMP 37.7; O2SAT 95
[2018-06-03] MEDS: Amitriptyline 25 MG Tablet PO (21:45)
[2018-06-03 21:50] VITALS: O2SAT 95
[2018-06-04] MEDS: 0.9% Normal Saline 1,000 ML 150 ML IV ×2 (02:45→10:15)
[2018-06-04 03:40] VITALS: BP 119/81; PULSE 76; RESP 16; TEMP 37.3; O2SAT 94
[2018-06-04 03:45] VITALS: O2SAT 94
[2018-06-04 05:52] LABS: Hemoglobin 12.1 g/dl (13.0-16.5); Mean Corp Hgb Conc 34.6 g/gl (32-36); Mean Corpuscular Hgb 31.1 pg (27.0-32.0); Mean Platelet Vol. 9.3 fl (6.2-12.0); Platelet Count 275 K/mm3 (150-450); RBC Distribution Width CV 12.7 % (11.6-14.6); RBC Distribution Width SD 41.5 fl (35.1-43.9); Red Blood Count 3.89 M/mm3 (4.6-6.2)
[2018-06-04 05:53] LABS: Scan Indicated on CBC? Y/N NO
[2018-06-04 06:02] LABS: Anion Gap 3 (5-15); BUN 5 mg/dL (7-18); BUN/Creat Ratio 7.6 RATIO (10-20); Calcium,Total 8.1 mg/dL (8.5-10.1); Chloride 108 mmol/L (98-107); Creatinine, Serum 0.66 mg/dL (0.70-1.30); EST Glomerular Filtration Rate 139 mL/min (>60); Est Glom Filt Rate - Afr Amer 169 mL/min (>60); Estimated Creatinine Clearance 139.85 ml/min; Glucose 92 mg/dL (74-106); Potassium 3.9 mmol/L (3.5-5.1); Sodium Level 139 mmol/L (136-145)
[2018-06-04] MEDS: Enoxaparin 40 MG/0.4 ML Syringe SC (06:11)
[2018-06-04 08:36] VITALS: BP 131/82; PULSE 91; RESP 16; TEMP 37.1; O2SAT 94
[2018-06-04] MEDS: guaiFENesin 600 MG Tablet PO (08:49)
[2018-06-04] MEDS: Famotidine 20 MG Tablet PO (08:50)
[2018-06-04] MEDS: Oseltamivir Phosphate 75 MG Capsule PO (08:50)
[2018-06-04] MEDS: Multivitamins,Therapeutic Tablet 1 TABLET PO (08:50)
[2018-06-04] MEDS: Ceftriaxone 1 GM/50 ML BAG IV (08:50)
--- NOTE | 2018-06-04 11:09 | DCINST_ITS ---
- Discharge Diagnoses Current Active Problems: Current Active and Chronic Problems Community acquired pneumonia of left lower lobe of lung (Acute) Mild intermittent chronic asthma without complication (Chronic) Fibromyalgia (Chronic) You will use the following diet at home:: No restrictions Discharge Activity: Return to Normal Activity Call your doctor if you observe: Fever of 101 or Higher, Shortness of breath, Dizziness, Fainting spells Allergies/Adverse Reactions: Allergies cat dander Allergy (Verified 06/02/18 15:38) itching, shortness of breath dog dander Allergy (Verified 06/02/18 15:38) Unknown bupropion HCl [From Wellbutrin] Adverse Reaction (Verified 06/02/18 15:27) anxiety montelukast [From Singulair] Adverse Reaction (Verified 06/02/18 15:27) MS-like symptoms, difficulty w/ balance and walking Medications to take at Discharge Albuterol Aerosols [Ventolin Aerosols] 2.5 mg INHALATION Q4H PRN PRN 06/02/18 Albuterol Inhaler [Ventolin Hfa] 2 puff INHALATION Q4H PRN PRN 06/02/18 Amitriptyline HCl [Elavil] 25 mg PO QHS 06/02/18 Cholecalciferol (VIT D3) [Vitamin D3] 2,500 unit PO DAILY 06/02/18 Escitalopram Oxalate [Lexapro] 10 mg PO DAILY 06/02/18 Fluticasone Furoate [Arnuity Ellipta] 1 puff INHALATION QHS 06/02/18 Multivitamin [Multivitamins] 1 each PO DAILY 06/02/18 Ondansetron HCl [Zofran] 4 mg PO Q8H PRN PRN 06/02/18 Pantoprazole Sodium [Protonix] 40 mg PO DAILY 06/02/18 Levofloxacin [Levaquin] 500 mg PO DAILY #5 tablet 06/04/18 Oseltamivir Phosphate [Tamiflu] 75 mg PO BID #7 capsule 06/04/18 The following prescriptions were given: Levofloxacin [Levaquin] 500 mg PO DAILY #5 tablet Oseltamivir Phosphate [Tamiflu] 75 mg PO BID #7 capsule Primary Care Physician: Raheem Reed DO [Primary Care Provider] - Please follow up with your Primary Care Physician in: 1 Week Test Results: Test results from this visit will be discussed in further detail at your follow- up appointment, if applicable. Proposed Discharge Date: 06/04/18
--- NOTE | 2018-06-04 12:10 | PCM.DC.SUM ---
Discharge Date and Diagnosis Date of Admission: 06/02/18 Date of Discharge: 06/04/18 - Primary Discharge Diagnosis Active and Suspected Problems 1. Acute sepsis secondary to acute left lower lobe community-acquired pneumonia and acute influenza A infection 2. Acute left lower lobe community-acquired pneumonia 3. Acute influenza A infection 4. Mild hypokalemia 5. Mild chronic intermittent asthma, no acute exacerbation 6. Fibromyalgia/chronic pain syndrome 7. Anxiety/depression - Secondary Discharge Diagnosis Chronic Problems Mild intermittent chronic asthma without complication (Chronic) Fibromyalgia (Chronic) Hospital Course and Treatment Imaging Results: Diagnostic Data Chest X-Ray 06/02/18 12:12 IMPRESSION: Infiltration in the superior segment of the left lower lobe. Radiographic follow-up until clearing is recommended. Electronically Signed: Eliel Libbylewiskeila, at 13:10 EDT , Service support , Operations: None Procedures: None Summary of Care Provided: The patient is a 48 year old M admitted 06/02/18 due to upper respiratory symptoms times 1 week. 1. Acute sepsis secondary to acute left lower lobe community-acquired pneumonia and acute influenza A infection-temp 103F on admission, HR 110, WBC 14.3. Sepsis resolved. 2. Acute left lower lobe community-acquired pneumonia-chest x-ray admission with left lower lobe infiltrate. Sputum culture shows normal respiratory chandler. Urine for strep and Legionella negative. Blood cultures negative. Patient received IV azithromycin and IV Rocephin during admission. Discharged on oral Levaquin 500 mg x 5 days to complete 7 days of antibiotic therapy. Follow-up with primary care physician in 1 week. Oxygen stable on room air. 3. Acute influenza A infection-continue prescribed Tamiflu regimen at discharge for a total of 5 days. 4. Mild hypokalemia-replaced per protocol, resolved. 5. Mild chronic intermittent asthma, no acute exacerbation-continue home aerosol regimen as needed. 6. Fibromyalgia/chronic pain syndrome-continue home regimen. 7. Anxiety/depression-continue home Lexapro, Elavil regimen. Patient seen and examined prior to discharge. Physical assessment as noted below. Patient is stable for discharge with follow up recommendations as noted above. This patient was seen by SANDRA Valerio under the supervision of Dr. Tereletsky. - Physical Exam Vital Signs Temp Pulse Resp BP Pulse Ox 98.8 F 91 16 131/82 H 94 06/04/18 08:36 06/04/18 08:36 06/04/18 08:36 06/04/18 08:36 06/04/18 08:36 Oxygen Delivery Method Room Air Weight: 186 lb 4.791 oz Body Mass Index (BMI) 27.5 Intake and Output for Last 24 Hours 06/02/18 06/03/18 06/04/18 23:59 23:59 23:59 Intake Total 3301 / 3301 4311 / 4311 984 / 984 Balance 3301 / 3301 4311 / 4311 984 / 984 Microbiology Past 72 Hours 06/02/18 14:00 Blood Culture - Preliminary Blood Culture (Wb) - Anticubital Left No growth in 48 hours. 06/02/18 14:00 Blood Culture - Preliminary Blood Culture (Wb) - Anticubital Right No growth in 48 hours. 06/02/18 20:30 Gram Stain - Final Sputum, Expectorated/Coughed Respiratory Culture - Preliminary Appears to be normal respiratory chandler. Further studies to follow. 06/02/18 17:15 Respiratory Panel (PCR) - Final Mucosa - Nasopharyngeal Influenza A (Subtype H1) 06/02/18 19:20 Legionella Antigen - Final Urine, Random 06/02/18 19:20 Streptococcus pneumoniae Antigen (M - Final Urine, Clean Catch 06/02/18 12:30 Influenza Types A,B Direct FA (HOWARD) - Final Mucosa - Nose Laboratory Tests Past 24 Hrs 06/04/18 06/04/18 05:40 05:40 WBC 12.0 H RBC 3.89 L Hgb 12.1 L Hct 35.0 L MCV 90.0 MCH 31.1 MCHC 34.6 RDW 12.7 RDW Differential 41.5 Plt Count 275 MPV 9.3 Sodium 139 Potassium 3.9 Chloride 108 H Carbon Dioxide 28.0 Anion Gap 3 L BUN 5 L Creatinine 0.66 L Estim Creat Clear Calc 139.85 Est GFR (MDRD) Af Amer 169 Est GFR (MDRD) Non-Af 139 BUN/Creatinine Ratio 7.6 L Glucose 92 Calcium 8.1 L Discharge Diet: No Restrictions Discharge Activity: Return to Normal Activity Call your doctor if you observe: Fever of 101 or Higher, Shortness of breath, Dizziness, Fainting spells Home Medications: Medications to take at Discharge Albuterol Aerosols [Ventolin Aerosols] 2.5 mg INHALATION Q4H PRN PRN 06/02/18 Albuterol Inhaler [Ventolin Hfa] 2 puff INHALATION Q4H PRN PRN 06/02/18 Amitriptyline HCl [Elavil] 25 mg PO QHS 06/02/18 Cholecalciferol (VIT D3) [Vitamin D3] 2,500 unit PO DAILY 06/02/18 Escitalopram Oxalate [Lexapro] 10 mg PO DAILY 06/02/18 Fluticasone Furoate [Arnuity Ellipta] 1 puff INHALATION QHS 06/02/18 Multivitamin [Multivitamins] 1 each PO DAILY 06/02/18 Ondansetron HCl [Zofran] 4 mg PO Q8H PRN PRN 06/02/18 Pantoprazole Sodium [Protonix] 40 mg PO DAILY 06/02/18 Levofloxacin [Levaquin] 500 mg PO DAILY #5 tablet 06/04/18 Oseltamivir Phosphate [Tamiflu] 75 mg PO BID #7 capsule 06/04/18 Following Prescrptions Were Given to Patient: Levofloxacin [Levaquin] 500 mg PO DAILY #5 tablet Oseltamivir Phosphate [Tamiflu] 75 mg PO BID #7 capsule Primary Care Physician: Raheem Reed DO [Primary Care Provider] - Please follow up with your Primary Care Physician in: 1 Week Disposition: Home Minutes spent on discharge:: 35 Patient Condition:: Stable Medical Necessity - Tobacco Use Smoking Status: Former smoker Tobacco Use: Cigarettes, Pipe Meaningful Use Info Meaningful Use Diagnoses (Choose all that apply): None applicable
--- NOTE | 2018-06-04 12:14 | DS.PCM_ITS ---
Addendum entered and electronically signed by SANDRA Valerio 06/04/18 13:04: Code Visit Physical exam completed prior to discharge as noted: General: Alert, Oriented x3, Cooperative HEENT: Atraumatic, PERRLA, EOMI, Normocephalic Neck: Supple, No JVD, Negative Carotid Bruits Lungs: Diminished, Rales LLL Cardiovascular: Regular rate, Regular Rhythm, Normal S1, Normal S2, No murmurs Abdomen: Bowel Sounds Present, Soft, Non Tender, Non-Distended Extremities: No edema, Capillary Refill Less than 3 Seconds Skin: No rashes, No breakdown Musculoskeletal: No Tenderness to Palpation of Joints or Extremities, Arthritic Changes Neurological: Cranial nerves II-XII grossly intact Psych/Mental Status: Normal Affect, Appropriate Original Note: Discharge Date and Diagnosis Date of Admission: 06/02/18 Date of Discharge: 06/04/18 - Primary Discharge Diagnosis Active and Suspected Problems 1. Acute sepsis secondary to acute left lower lobe community-acquired pneumonia and acute influenza A infection 2. Acute left lower lobe community-acquired pneumonia 3. Acute influenza A infection 4. Mild hypokalemia 5. Mild chronic intermittent asthma, no acute exacerbation 6. Fibromyalgia/chronic pain syndrome 7. Anxiety/depression - Secondary Discharge Diagnosis Chronic Problems Mild intermittent chronic asthma without complication (Chronic) Fibromyalgia (Chronic) Hospital Course and Treatment Imaging Results: Diagnostic Data Chest X-Ray 06/02/18 12:12 IMPRESSION: Infiltration in the superior segment of the left lower lobe. Radiographic follow-up until clearing is recommended. Electronically Signed: Eliel Preston, at 13:10 EDT , Service support , Operations: None Procedures: None Summary of Care Provided: The patient is a 48 year old M admitted 06/02/18 due to upper respiratory symptoms times 1 week. 1. Acute sepsis secondary to acute left lower lobe community-acquired pneumonia and acute influenza A infection-temp 103F on admission, HR 110, WBC 14.3. Sepsis resolved. 2. Acute left lower lobe community-acquired pneumonia-chest x-ray admission with left lower lobe infiltrate. Sputum culture shows normal respiratory chandler. Urine for strep and Legionella negative. Blood cultures negative. Patient received IV azithromycin and IV Rocephin during admission. Discharged on oral Levaquin 500 mg x 5 days to complete 7 days of antibiotic therapy. Follow-up with primary care physician in 1 week. Oxygen stable on room air. 3. Acute influenza A infection-continue prescribed Tamiflu regimen at discharge for a total of 5 days. 4. Mild hypokalemia-replaced per protocol, resolved. 5. Mild chronic intermittent asthma, no acute exacerbation-continue home aerosol regimen as needed. 6. Fibromyalgia/chronic pain syndrome-continue home regimen. 7. Anxiety/depression-continue home Lexapro, Elavil regimen. Patient seen and examined prior to discharge. Physical assessment as noted below. Patient is stable for discharge with follow up recommendations as noted above. This patient was seen by SANDRA Valerio under the supervision of Dr. Munoz. - Physical Exam Vital Signs Temp Pulse Resp BP Pulse Ox 98.8 F 91 16 131/82 H 94 06/04/18 08:36 06/04/18 08:36 06/04/18 08:36 06/04/18 08:36 06/04/18 08:36 Oxygen Delivery Method Room Air Weight: 186 lb 4.791 oz Body Mass Index (BMI) 27.5 Intake and Output for Last 24 Hours 06/02/18 06/03/18 06/04/18 23:59 23:59 23:59 Intake Total 3301 / 3301 4311 / 4311 984 / 984 Balance 3301 / 3301 4311 / 4311 984 / 984 Microbiology Past 72 Hours 06/02/18 14:00 Blood Culture - Preliminary Blood Culture (Wb) - Anticubital Left No growth in 48 hours. 06/02/18 14:00 Blood Culture - Preliminary Blood Culture (Wb) - Anticubital Right No growth in 48 hours. 06/02/18 20:30 Gram Stain - Final Sputum, Expectorated/Coughed Respiratory Culture - Preliminary Appears to be normal respiratory chandler. Further studies to follow. 06/02/18 17:15 Respiratory Panel (PCR) - Final Mucosa - Nasopharyngeal Influenza A (Subtype H1) 06/02/18 19:20 Legionella Antigen - Final Urine, Random 06/02/18 19:20 Streptococcus pneumoniae Antigen (M - Final Urine, Clean Catch 06/02/18 12:30 Influenza Types A,B Direct FA (HOWARD) - Final Mucosa - Nose Laboratory Tests Past 24 Hrs 06/04/18 06/04/18 05:40 05:40 WBC 12.0 H RBC 3.89 L Hgb 12.1 L Hct 35.0 L MCV 90.0 MCH 31.1 MCHC 34.6 RDW 12.7 RDW Differential 41.5 Plt Count 275 MPV 9.3 Sodium 139 Potassium 3.9 Chloride 108 H Carbon Dioxide 28.0 Anion Gap 3 L BUN 5 L Creatinine 0.66 L Estim Creat Clear Calc 139.85 Est GFR (MDRD) Af Amer 169 Est GFR (MDRD) Non-Af 139 BUN/Creatinine Ratio 7.6 L Glucose 92 Calcium 8.1 L Discharge Diet: No Restrictions Discharge Activity: Return to Normal Activity Call your doctor if you observe: Fever of 101 or Higher, Shortness of breath, Dizziness, Fainting spells Home Medications: Medications to take at Discharge Albuterol Aerosols [Ventolin Aerosols] 2.5 mg INHALATION Q4H PRN PRN 06/02/18 Albuterol Inhaler [Ventolin Hfa] 2 puff INHALATION Q4H PRN PRN 06/02/18 Amitriptyline HCl [Elavil] 25 mg PO QHS 06/02/18 Cholecalciferol (VIT D3) [Vitamin D3] 2,500 unit PO DAILY 06/02/18 Escitalopram Oxalate [Lexapro] 10 mg PO DAILY 06/02/18 Fluticasone Furoate [Arnuity Ellipta] 1 puff INHALATION QHS 06/02/18 Multivitamin [Multivitamins] 1 each PO DAILY 06/02/18 Ondansetron HCl [Zofran] 4 mg PO Q8H PRN PRN 06/02/18 Pantoprazole Sodium [Protonix] 40 mg PO DAILY 06/02/18 Levofloxacin [Levaquin] 500 mg PO DAILY #5 tablet 06/04/18 Oseltamivir Phosphate [Tamiflu] 75 mg PO BID #7 capsule 06/04/18 Following Prescrptions Were Given to Patient: Levofloxacin [Levaquin] 500 mg PO DAILY #5 tablet Oseltamivir Phosphate [Tamiflu] 75 mg PO BID #7 capsule Primary Care Physician: Raheem Reed DO [Primary Care Provider] - Please follow up with your Primary Care Physician in: 1 Week Disposition: Home Minutes spent on discharge:: 35 Patient Condition:: Stable Medical Necessity - Tobacco Use Smoking Status: Former smoker Tobacco Use: Cigarettes, Pipe Meaningful Use Info Meaningful Use Diagnoses (Choose all that apply): None applicable
== END 2018-06-04 12:29 | disposition home or self-care (01) | DRG 720 ==
LOC: ED 12:31 → PCU 15:48
PROVIDERS: Internal Medicine; Admitting Provider Internal Medicine; Emergency Provider Emergency Medicine; Family Provider Student in an Organized Health Care Education/Training Program; PCP Student in an Organized Health Care Education/Training Program; Visit Provider Internal Medicine
DX: A41.9 Sepsis, unspecified organism (principal); J10.00 Influenza due to other identified influenza virus with unspecified type of pneumonia; J45.20 Mild intermittent asthma, uncomplicated; M79.7 Fibromyalgia; F41.8 Other specified anxiety disorders; G89.4 Chronic pain syndrome; E87.6 Hypokalemia; Z87.891 Personal history of nicotine dependence
CPT/HCPCS: 36415; 71046; 80048; 80053; 81002; 83605; 83735; 85025; 85027; 87040; 87070; 87205; 87449; 87633; 87804; 93005; 94667; 97802; 99284; J7030; A4216

== ENCOUNTER → 2018-11-10 12:44 | Outpatient (REF) | payer MEDICAID, SELFPAY ==
[2018-06-02 16:22] VITALS: BMI 27.5
== END ==
LOC: CVS 12:44
PROVIDERS: Family Provider Student in an Organized Health Care Education/Training Program; PCP Student in an Organized Health Care Education/Training Program; Referring Provider Registered Nurse; Visit Provider Registered Nurse
DX: R06.02 Shortness of breath (principal); R00.2 Palpitations; R07.89 Other chest pain
CPT/HCPCS: 93270

== ENCOUNTER 2019-07-08 13:34 | Outpatient (RCR) | payer MEDICAID, SELFPAY ==
[2018-06-02 16:22] VITALS: BMI 27.5
--- NOTE | 2019-07-08 15:23 | HP.OTFCE_ITS ---
Floor (Occasional 1-33% of Day): 30lb Floor (Frequent 34-66% of Day): 15lb Floor (Constant 67-100% of Day): Negligible Floor PDL: Light Knee (Occasional 1-33% of Day): 30lb Knee (Frequent 34-66% of Day): 15lb Knee (Constant 67-100% of Day): Negligible Knee PDL: Light Waist (Occasional 1-33% of Day): 30lb Waist (Frequent 34-66% of Day): 15lb Waist (Constant 67-100% of Day): Negligible Waist PDL: Light Shoulder (Occasional 1-33% of Day): 30lb Shoulder (Frequent 34-66% of Day): 15lb Shoulder (Constant 67-100% of Day): Negligible Shoulder PDL: Light Overhead (Occasional 1-33% of Day): 30lb Overhead (Frequent 34-66% of Day): 15lb Overhead (Constant 67-100% of Day): Negligible Overhead PDL: Light Bending: Frequent Ability (34-66% of day) Squatting: Occasional Ability (1-33% of day) Kneeling: Occasional Ability (1-33% of day) Reaching out: Frequent Ability (34-66% of day) Reaching up: Frequent Ability (34-66% of day) Sitting: Constant Ability (67-100% of day) Walking: Occasional Ability (1-33% of day) Standing: Occasional Ability (1-33% of day) Duration Sedentary Sedentary Light Light Light Medium Medium Medium Heavy Very Heavy Heavy Occasional (0-33% of day) Frequent (34-66% of day) Constant (67-100% of day) 10 # Negligible Negligible 15 # 8 # Negligible 20 # 10# Negli. 35 # 18 # 7 # 50 # 25 # 10 # 75 # 100 # >100 # 38 # 50 # >50 # 15 # 20 # >20 # Height: 5 ft 9 in Weight:: 88.451 kg Hand Dominance: right Medical History Including Restrictions: PMHx; gait d/o, chronic pain syndrome, balance d/o, muscle weakness, diplopia, paresthesias with subjective weakness, fibromyalgia, asthma, rhinoplasty 2016, toncilectomy as child Diagnoses: PMHx; gait d/o, chronic pain syndrome, balance d/o, muscle weakness, diplopia, paresthesias with subjective weakness, fibromyalgia, asthma, toncilectomy as child, rhinoplasty 2016. Symptoms: Pt reports; muscle tightness and weakness, bilateral legs, shoulder blades, L shoulder blade stiffer than R shoulder blade, tremors most of the time, feels like muscles are trying to curl up hands and feet, vision problems and headaches from vision, feels left eye doesn't blink as much as right, feels face sometimes feels stiffer or puffy on one side. 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 ADLS: 2 story house split level lives w/ spouse and 2 kids, 7 steps to enter 1 handrail. AMB w/ std cane primarily in evenings as fatigues more, otherwise AMB no device sometimes furniture walks. AMB w/ std cane in community. Indep w/ BADLs, occassionally needs assist with bathing to finish washing secondasry to fatigue pending on how he is feeling. Walk in shower and tub/shower, prefers to take a bath. Std toilet seats. Completes meal prep tasks with extra time needed starts dinner at 3 because it takes a long time extra breaks and pain to complete tasks. Assist with laundry depends on the day and how he is feeling. Sleeps is adjustable bed. No animals to care for. Laundry in basement w/ handrail on steps. ROM: BUE WFL BLE WFL Strength: R UE 4-/5, L UE 4-/5, R LE 3+/5, L LE 4-/5 Right Taker Away Strength Average: 61.66 Left Taker Away Strength Average: 51.66 Right Lateral Pinch Average: 9.33 Left Lateral Pinch Average: 7.66 Right Tripod Pinch Average: 7.00 Left Tripod Pinch Average: 5.66 Sensation: Tingling in feet all the time, spouse states he can't feel everything in his back. Fine Motor: No fine motor concerns Balance: Pt states no falls in last 3 months, one incident where landed into wall but never fell onto floor. Bending: Pt able to bend down to floor 1x, 10x, unable to complete bending down fast 10x secondary fatigue and increased pain R thigh to complete task. Squatting: Pt able to complete 1x, 6x, unable to continue secondary to felt very unsteady and fatigued. Kneeling: Pt able to complete kneel with right leg leading and one knee with left foot leading having to go down to floor and rest a few seconds on knee before coming back to standing position while using support of therapist desk to pull self back up from each leg. Reaching out/up: pt able to stand to reach up 1x, 10x, 10x fast, states stiffens up shoulder blades to complete. Pt able to stand to reach out to sides R/L 1x, 10x, 10x fast. Walking: Completed 6 min 13 seconds of 15 minute walk test then had to stop secondary to fatigue and dizziness. Standing: Able to stand for short amounts of time between activities Sitting: Able to sit w/o s/s of discomfort for first 30 min of evaluation and in between activites. Climbing Stairs: Able to climb 10 steps going up with hand on R handle and cane L hand, one step at time, came down R hand handle and cane L hand for support. Floor Lift: 30lb max Knee Lift: 30lb max Waist Lift: 30lb max Shoulder Lift: 30lb max Overhead Lift: 30lb max Carryinlb max ambulated 12 ft carrying box with 30lb
== END 2019-07-08 19:00 | disposition home or self-care (01) ==
LOC: OT 13:34
PROVIDERS: PCP Student in an Organized Health Care Education/Training Program; Referring Provider Student in an Organized Health Care Education/Training Program; Visit Provider Student in an Organized Health Care Education/Training Program
DX: R26.9 Unspecified abnormalities of gait and mobility (principal); G89.4 Chronic pain syndrome; R26.89 Other abnormalities of gait and mobility; M62.81 Muscle weakness (generalized); H53.2 Diplopia; R20.2 Paresthesia of skin
CPT/HCPCS: 97165; 97167

== ENCOUNTER 2019-12-23 16:30 | Outpatient (RCR) | payer MEDICAID, SELFPAY ==
[2018-06-02 16:22] VITALS: BMI 27.5
--- NOTE | 2019-08-30 17:08 | HP.OTEVAL ---
Patient's Visit Information SOFIYA CHAMBERS is a 49 year old M, referred to Occupational Therapy by Dr. Raheem Reed DO, with a diagnosis of muscle weakness/ binocular diploplia. Date of Evaluation: 08/30/19 Occupational Therapist: Aylin Lechuga, HAMLETR/Isaias, CHT - Subjective This 49 year old male was seen for OT eval with dx of chronic pain, muscle weakness. 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 pt has difficulty with vision safety with ambulation, headaches with computer or reading tasks. pt would like to regain strength and figure out what he can do with his vision. - Pain all over 4 Pain Intensity Range: 3, 6 - ROM ROM Comments: pt demo BUE WNL - Strength Hr Administrative Assistant: right 40# left 35# Strength Comments: grossly throughout 4-/5 BUE - Sensation Sensation Comments: denies - Quick DASH-Disab of Arm,Shoulder& Hand Quick DASH Score: 52.2725 - Goals Goal:: pt will demo a increase in BUE MMT to 5/5 to increase pts ind. with ADLs and IADls by d/c Goal:: pt will demo increase in motor-free visual preception test by increasing his raw score to 57/65 or greater to increase pts visual skills with ADls by d/c Goal:: pt will demo understanding of using compensitory jamie. for his limited visual field for safety with amb. and ADLs - Rehabilitation General Assessment: pt demo with weakness in UB limiting pts functional performance of ADLs and IADLs. Pt demo with difficulty with vision limiting pts ability to read, drive and scan his enviroment. Pt would benefit from skilled OT services 2x week for 4 weeks to assist pt on reaching his maximal rehab. potential. Rehabilitation Potential: Fair - Anticipated Interventions Strengthening, Visual/Perceptual Skills, ADL Training, Education re assistive Equipment - Visit Plan Frequency: 2x /Week Duration: 4 Weeks TEXT: Thank you for the opportunity to evaluate your patient. For Medicare and Medicare HMO plans, please review the plan of care and approve it. It will need to be FAXED BACK to us at [phone] for Medicare purposes. Please let me know if there are questions or concerns regarding this plan of care. Physician Signature: Date:
--- NOTE | 2019-08-31 07:55 | HP.PTEVAL_ITS ---
Patient's Visit Information SOFIYA CHAMBERS is a 49 year old M referred to Physical Therapy by Dr. Raheem Reed DO with a diagnosis of Weakness. Date of Evaluation: 08/30/19 Physical Therapist: Nadege Alfredo DPT - Visit Plan Frequency: 2x /Week Duration: 4 Weeks Plan: Aquatics-focus on LE and core strength/stabilization- balance - Subjective He reports that he has been having a lot of problems seeing and walking- no formal diagnosis at this time they are starting testing in the near future- Dr. De Jesus at [facility]- will run most tests through [facility]. Started having symptoms in 2016- vision was first issue and has gone down hill from there- no trigger. OT has a diagram of what he can see- stress makes vision worse. Pain is everywhere- face to feet- more use more painful and fatigue. Deep pain and describes as dull and achy. Electric shocks when he gets out of bed or getting up from sitting- sensitive to light. Worst: 8/10 Best: 3/10. Eases: rest often helps. Cold makes his muscle tight- warm water makes him feel better. Balance- has had no falls but catches himself a lot- uses a cane almost all the time. Does have stairs for laundry-at home does not use the cane. 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 Goals: balance and regaining strength. Does not drive. PMHX/Meds: see scanned in chart. - Objective Posture: FH, RS, increased kyphosis- can correct but does not maintain. Gait: ataxic- significant head movements for scanning of area- wide ARIN with caution for foot placement. uses straight cane for balance. Stairs: asc/desc 8 recip with 2 HR when given verbal cues. Prefers step to pattern for ascend and sideways for desc. HR/TR: able but reports tightness for TR. Balance: see FGA- can SLS for 5 seconds on each side then requires UE A. ROM: WFL in all planes. Flex: HS: severe, Gastroc: severe. Strength: Core: fair minus, Hip flexion: 4- /5, Extn: 4/5, Abd: 4/5, Add: 4/5, IR/ER: 4-/5, Knee: 5/5, Ankle: 5/5. Sensation/Reflex: WNL - Balance Scores Functional Gait Assessment Score: 10 % Disability: 66.6700 - Goals Goal 1:: Patient will be I with HEP and progression Goal Time Frame: 4-6 Weeks Goal 2:: Patient will asc/desc 8 stairs recip with 1 HR with normal jessica Goal Time Frame: 4-6 Weeks Goal 3:: Patient will demo 5/5 strength in LE Goal Time Frame: 4-6 Weeks Goal 4:: Patient will maintain proper posture t/o tx session to demo increased core s/s Goal Time Frame: 4-6 Weeks Goal 5:: Patient will improve his FGA by 4 points Goal Time Frame: 4-6 Weeks - Rehabilitation Potential Physical Therapy Diagnosis: Patient presents with hypomobility- he has decreased strength, flex and muscular endurance leading to poor posture and decreased ability to perform ADL's. Rehabilitation Potential: Fair - Anticipated Interventions Patient/Client Instruction: Educate patient on: Benefits of Fitness Program Therapeutic Exercise to Include: Strength training, Endurance training, Balance training, Coordination, Agility training, Body mechanics, Postural training, Flexibilty training, Gait and locomotor training, Neuromotor development, In an aquatic setting, Dynamic Lumbar Stabilization, Scapular Strength/Stabilization For the Purpose of:: To improve muscle performance and motor function Thank you for the opportunity to evaluate your patient. For Medicare and Medicare HMO plans, please review the plan of care and approve it. It will need to be FAXED BACK to us at [phone] for Medicare purposes. For Medicare only, by signing this I certify the plan of care. Please let me know if there are questions or concerns regarding this plan of care. Physician Signature: Date:
--- NOTE | 2019-09-28 09:50 | HP.PTREVAL ---
Dr. Raheem Reed, DO, It has been my pleasure to treat SOFIYA CHAMBERS over the last 8 visits for Weakness. Please see the progress note below for an update on the physical therapy plan of care! Subjective: Patient reports that the pool has been incredible helpful. He has been paying much more attention to his posture. He feels that he is able to stand for longer periods of time. Has noticed that his balance is better- during morning prayers he is able to stand for long which is about 10 min from start to end. Objective/Function: Posture: FH, RS, increased kyphosis- can correct but does not maintain. Gait: ataxic- significant head movements for scanning of area- wide ARIN with caution for foot placement. uses straight cane for balance- much improved from initial evaluation. Stairs: asc/desc 8 recip with 12 HR when given verbal cues. HR/TR: able but reports tightness for TR. Balance: see FGA- can SLS for 30 sec on left 10 sec on right. ROM: WFL in all planes. Flex: HS: mod, Gastroc: mod. Strength: Core: fair, Hip flexion: 4/5, Extn: 4+/5, Abd: 4+/5, Add: 4+/5, IR/ER: 4/5, Knee: 5/5, Ankle: 5/5. Sensation/Reflex: WNLLeft: 30 sec Right: 10 sec Plan Plan: 2x a week in aquatics- continued. *Aquatics-focus on LE and core strength/stabilization- balance Goals Goal 1:: Patient will be I with HEP and progression Goal Time Frame: 4-6 Weeks Goal Progress: Progressing Goal 2:: Patient will asc/desc 8 stairs recip with 1 HR with normal jessica Goal Time Frame: 4-6 Weeks Goal Progress: Progressing Goal 3:: Patient will demo 5/5 strength in LE Goal Time Frame: 4-6 Weeks Goal Progress: Progressing Goal 4:: Patient will maintain proper posture t/o tx session to demo increased core s/s Goal Time Frame: 4-6 Weeks Goal Progress: Progressing Goal 5:: Patient will improve his FGA by 4 points Goal Time Frame: 4-6 Weeks Goal Progress: Progressing Anticipated Interventions Patient/Client Instruction: Educate patient on: Benefits of Fitness Program Therapeutic Exercise to Include: Strength training, Endurance training, Balance training, Coordination, Agility training, Body mechanics, Postural training, Flexibilty training, Gait and locomotor training, Neuromotor development, In an aquatic setting, Dynamic Lumbar Stabilization, Scapular Strength/Stabilization For the Purpose of:: To improve muscle performance and motor function Please do not hesitate to contact me at [phone] by phone or if you have questions or concerns regarding this new plan of care! Sincerely, JASPER SanfordT
--- NOTE | 2019-09-28 10:25 | HP.OTDCSUM ---
It has been my pleasure to treat SOFIYA CHAMBERS under orders from Dr. Raheem Reed, DO, for the diagnosis of muscle weakness/ binocular diploplia for a total of 9 visit(s). Please see the following information for a summary of their discharge status. Objective/Function: pt states he continues to have pain in his upper scapula thoracic pain-. 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 pt states he continues to struggle with long car rides and when he is painful he will stop and rest and then return to task. pt is MIROSLAVA Patient Goals: Regain Strength, Be More Independent in ADLS, Improve Visual/Perceptual Skills Goal:: pt will demo a increase in BUE MMT to 5/5 to increase pts ind. with ADLs and IADls by d/c Goal:: pt will demo increase in motor-free visual preception test by increasing his raw score to 57/65 or greater to increase pts visual skills with ADls by d/c Goal:: pt will demo understanding of using compensitory jamie. for his limited visual field for safety with amb. and ADLs Plan: D/C pt to cont with PT Discharge Comments: pt was seen for If there are questions or concerns regarding this patient's occupational therapy, please fell free to call me at [phone]. Thank you for the referral of this patient. Sincerely, Aylin Lechuga, OTR/L, CHT
--- NOTE | 2019-10-25 11:23 | HP.PTREVAL ---
Dr. Raheem Reed, DO, It has been my pleasure to treat SOFIYA CHAMBERS over the last 15 visits for Weakness. Please see the progress note below for an update on the physical therapy plan of care! Subjective: Patient reports that his mobility is doing fairly well. No LOB or falls in the past few weeks. Does feel that his pain in the LE is better- the pain is less intense and less frequent with the same activities. He feels he is able to do more functional activities. Patient wants more endurance and still needs to work on his balance. Vision is still the same a little more intense today- fluctuates with anxiety. He would like to continue but take a break for a few weeks. Does have tools that he is taking with him. Objective/Function: Posture: fair throughout. Gait: ataxic- mild head movements for scanning purposes. uses straight cane for balance- much improved from initial evaluation. Stairs: asc/desc 8 recip with 1 HR when given verbal cues. HR/TR: able. Balance: see FGA- can SLS for 30 sec on left 20 sec on right. ROM: WFL in all planes. Flex: HS: mod, Gastroc: mod. Strength: Core: fair, Hip flexion: 4+/5, Extn: 4+/5, Abd: 4+/5, Add: 4+/5, IR/ER: 4/5, Knee: 5/5, Ankle: 5/5. Sensation/Reflex: WNL Plan Plan: Hold 4 weeks- then re-evaluate Goals Goal 1:: Patient will be I with HEP and progression Goal Time Frame: 4-6 Weeks Goal Progress: Progressing Goal 2:: Patient will asc/desc 8 stairs recip with 1 HR with normal jessica Goal Time Frame: 4-6 Weeks Goal Progress: Progressing Goal 3:: Patient will demo 5/5 strength in LE Goal Time Frame: 4-6 Weeks Goal Progress: Progressing Goal 4:: Patient will maintain proper posture t/o tx session to demo increased core s/s Goal Time Frame: 4-6 Weeks Goal Progress: Progressing Goal 5:: Patient will improve his FGA by 4 points Goal Time Frame: 4-6 Weeks Goal Progress: Progressing Anticipated Interventions Patient/Client Instruction: Educate patient on: Benefits of Fitness Program Therapeutic Exercise to Include: Strength training, Endurance training, Balance training, Coordination, Agility training, Body mechanics, Postural training, Flexibilty training, Gait and locomotor training, Neuromotor development, In an aquatic setting, Dynamic Lumbar Stabilization, Scapular Strength/Stabilization For the Purpose of:: To improve muscle performance and motor function Please do not hesitate to contact me at [phone] by phone or if you have questions or concerns regarding this new plan of care! Sincerely, JASPER SanfordT
--- NOTE | 2019-11-22 07:51 | HP.PTREVAL ---
Dr. Raheem Reed, DO, It has been my pleasure to treat SOFIYA CHAMBERS over the last 16 visits for Weakness. Please see the progress note below for an update on the physical therapy plan of care! Subjective: Patient reports that he is doing all of the exercises that he was given in PT. Patient reports that he feels like he is staying the same. Is using green bands at home but does not feel that its to easy. No falls at home- using the cane outside of the home but not inside. Objective/Function: Posture: fair throughout. Gait: ataxic- mild head movements for scanning purposes. uses straight cane for balance- much improved from initial evaluation. Stairs: asc/desc 8 recip with 1 HR when given verbal cues. HR/TR: able. Balance: see FGA- can SLS for 30 sec on left 20 sec on right. ROM: WFL in all planes. Flex: HS: mod, Gastroc: mod. Strength: Core: fair, Hip flexion: 4+/5, Extn: 4+/5, Abd: 4+/5, Add: 4+/5, IR/ER: 4/5, Knee: 5/5, Ankle: 5/5. Sensation/Reflex: WNL Plan Plan: No significant change or decline since last re-evalution due to subjective and objective exam patient to continue therapy in the clinic based land setting to promote progression of Home exercise program and balance related exercises. Continue 2x a week for 4 weeks on land based program. Goals Goal 1:: Patient will be I with HEP and progression Goal Time Frame: 4-6 Weeks Goal Progress: Progressing Goal 2:: Patient will asc/desc 8 stairs recip with 1 HR with normal jessica Goal Time Frame: 4-6 Weeks Goal Progress: Progressing Goal 3:: Patient will demo 5/5 strength in LE Goal Time Frame: 4-6 Weeks Goal Progress: Progressing Goal 4:: Patient will maintain proper posture t/o tx session to demo increased core s/s Goal Time Frame: 4-6 Weeks Goal Progress: Progressing Goal 5:: Patient will improve his FGA by 4 points Goal Time Frame: 4-6 Weeks Goal Progress: Progressing Anticipated Interventions Patient/Client Instruction: Educate patient on: Benefits of Fitness Program Therapeutic Exercise to Include: Strength training, Endurance training, Balance training, Coordination, Agility training, Body mechanics, Postural training, Flexibilty training, Gait and locomotor training, Neuromotor development, In an aquatic setting, Dynamic Lumbar Stabilization, Scapular Strength/Stabilization For the Purpose of:: To improve muscle performance and motor function Please do not hesitate to contact me at [phone] by phone or if you have questions or concerns regarding this new plan of care! Sincerely, JASPER SanfordT
--- NOTE | 2019-12-23 16:52 | HP.PTREVAL ---
Dr. Raheem Reed, DO, It has been my pleasure to treat SOFIYA CHAMBERS over the last 21 visits for Weakness. Please see the progress note below for an update on the physical therapy plan of care! Subjective: Patient reports that he has not be capable of doing much during the last few days due to depression- to much going on. Feels that PT has been making him a lot stronger- He is managing at home- stairs are the hardest part. Mostly challenged with the descent- does have rails. Endurance is more an issue than strength. Objective/Function: Posture: fair throughout. Gait: slightly ataxic- mild head movements for scanning purposes. uses straight cane for balance- much improved from initial evaluation. Stairs: asc/desc 8 recip with 1 HR. HR/TR: able. Balance: see FGA- can SLS for 30 sec on left 20 sec on right. ROM: WFL in all planes. Flex: HS: mod, Gastroc: mod. Strength: Core: fair, Hip flexion: 4+/5, Extn: 4+/5, Abd: 4+/5, Add: 4+/5, IR/ER: 4/5, Knee: 5/5, Ankle: 5/5. Sensation/Reflex: WNL Plan Plan: Hold- 4 weeks will attempt HEP independently and call if questions Goals Goal 1:: Patient will be I with HEP and progression Goal Time Frame: 4-6 Weeks Goal Progress: Progressing Goal 2:: Patient will asc/desc 8 stairs recip with 1 HR with normal jessica Goal Time Frame: 4-6 Weeks Goal Progress: Progressing Goal 3:: Patient will demo 5/5 strength in LE Goal Time Frame: 4-6 Weeks Goal Progress: Progressing Goal 4:: Patient will maintain proper posture t/o tx session to demo increased core s/s Goal Time Frame: 4-6 Weeks Goal Progress: Progressing Goal 5:: Patient will improve his FGA by 4 points Goal Time Frame: 4-6 Weeks Goal Progress: Progressing Anticipated Interventions Patient/Client Instruction: Educate patient on: Benefits of Fitness Program Therapeutic Exercise to Include: Strength training, Endurance training, Balance training, Coordination, Agility training, Body mechanics, Postural training, Flexibilty training, Gait and locomotor training, Neuromotor development, In an aquatic setting, Dynamic Lumbar Stabilization, Scapular Strength/Stabilization For the Purpose of:: To improve muscle performance and motor function Please do not hesitate to contact me at [phone] by phone or if you have questions or concerns regarding this new plan of care! Sincerely, JASPER SanfordT
== END 2019-12-23 19:00 | disposition home or self-care (01) ==
LOC: PT 16:30
PROVIDERS: PCP Student in an Organized Health Care Education/Training Program; Referring Provider Student in an Organized Health Care Education/Training Program; Visit Provider Student in an Organized Health Care Education/Training Program
DX: G89.4 Chronic pain syndrome (principal); R26.9 Unspecified abnormalities of gait and mobility; M62.81 Muscle weakness (generalized); R20.2 Paresthesia of skin; R26.89 Other abnormalities of gait and mobility
CPT/HCPCS: 97110; 97113; 97162; 97164; 97166; 97530

== ENCOUNTER → 2020-08-09 14:19 | Outpatient (CLI) | payer MEDICAID, SELFPAY ==
[2018-06-02 16:22] VITALS: BMI 27.5
--- NOTE | 2020-08-09 14:23 | CT_ITS ---
STUDY: CT ORBITS WITHOUT CONTRAST REASON FOR EXAM: Male, 50 years old. Eyelid retraction of right and left eye RADIATION DOSAGE (If Supplied By Facility): CTDIvol = ( 29.38 ) mGy, DLP = ( 407.88 ) mGycm TECHNIQUE: The patient was scanned in a multi detector CT scanner. Transaxial imaging was performed without the administration of intravenous contrast material. Sagittal and coronal images were reconstructed. Individualized dose optimization techniques were used for this CT. COMPARISON: None. FINDINGS: Normal globes. Normal intraconal spaces. Normal optic nerve sheath complex. Normal bilateral extraocular muscles. Normal lacrimal glands. Normal bilateral medial and inferior orbital guerrero. Normal bilateral maxillary bones. Normal bilateral frontozygomatic arches. Normal bilateral zygomatic temporal arches. Normal frontal sinus. Partial opacification of the ethmoid sinuses. Normal maxillary sinuses. Normal sphenoid sinuses. Normal soft tissue structures. CT/Orb Sella Post Fossa Ear w/o IMPRESSION: Partial opacification of the ethmoid sinuses. Electronically Signed: Eliel Preston MD at 14:53 EDT , Service support ,
== END ==
PROVIDERS: PCP Student in an Organized Health Care Education/Training Program
DX: H02.536 Eyelid retraction left eye, unspecified eyelid (principal); H02.533 Eyelid retraction right eye, unspecified eyelid
CPT/HCPCS: 70480

== ENCOUNTER → 2020-08-30 12:08 | Outpatient (CLI) | payer MEDICAID, SELFPAY ==
[2018-06-02 16:22] VITALS: BMI 27.5
--- NOTE | 2020-08-30 12:20 | RAD_ITS ---
STUDY: X-RAY - LUMBAR SPINE REASON FOR EXAM: Male, 50 years old. Chronic lower back pain x 6 years, NKI TECHNIQUE: 3 view(s) of the lumbar spine were obtained. COMPARISON: None FINDINGS: Normal lumbar lordosis. There is no substantial scoliosis. There is a normal alignment of the vertebrae. Normal vertebral bodies and endplates. Normal disc space heights. There is mild atherosclerotic calcification of the abdominal aorta without a demonstrated aneurysm. RAD/Lumbar Spine 2 or 3 Views IMPRESSION: Normal x-ray examination of the lumbar spine. Electronically Signed: Eliel Preston MD at 15:31 EDT , Service support ,
== END ==
PROVIDERS: PCP Student in an Organized Health Care Education/Training Program; Referring Provider Anesthesiology Pain Medicine; Visit Provider Anesthesiology Pain Medicine
DX: H53.2 Diplopia (principal); R26.89 Other abnormalities of gait and mobility; R26.9 Unspecified abnormalities of gait and mobility; R17 Unspecified jaundice; G89.4 Chronic pain syndrome; J01.00 Acute maxillary sinusitis, unspecified; Z77.120 Contact with and (suspected) exposure to mold (toxic)
CPT/HCPCS: 36415; 72100

== ENCOUNTER → 2020-09-08 08:57 | Outpatient (CLI) | payer MEDICAID, SELFPAY ==
[2018-06-02 16:22] VITALS: BMI 27.5
== END ==
PROVIDERS: PCP Student in an Organized Health Care Education/Training Program
DX: H53.2 Diplopia (principal); R26.89 Other abnormalities of gait and mobility; R26.9 Unspecified abnormalities of gait and mobility; R17 Unspecified jaundice; G89.4 Chronic pain syndrome; J01.00 Acute maxillary sinusitis, unspecified; Z77.120 Contact with and (suspected) exposure to mold (toxic)

== ENCOUNTER → 2021-01-24 15:37 | Outpatient (CLI) | payer MEDICAID, SELFPAY ==
--- NOTE | 2021-01-24 15:45 | RAD_ITS ---
STUDY: X-RAY - THORACIC SPINE REASON FOR EXAM: Male, 50 years old. Back pain. Other intervertebral disc degeneration, thoracic region. TECHNIQUE: 3 view(s) of the thoracic spine were obtained. COMPARISON: Chest, 06/02/2018. FINDINGS: Normal kyphosis of the thoracic spine. There is no substantial scoliosis. There is demineralization of the thoracic spine with endplate spondylosis. There is no evidence of acute fracture or loss of vertebral axial height. The soft tissue structures are unremarkable. RAD/Thoracic Spine 3 Views IMPRESSION: Minimal degenerative changes, stable when compared to prior chest film. Electronically Signed: Bill Red DO at 16:17 EST Tel [phone], Service support ,
== END ==
PROVIDERS: PCP Student in an Organized Health Care Education/Training Program; Referring Provider Anesthesiology Pain Medicine; Visit Provider Anesthesiology Pain Medicine
DX: M51.34 Other intervertebral disc degeneration, thoracic region (principal)
CPT/HCPCS: 72072

== ENCOUNTER 2021-08-02 10:54 | Emergency (ER) | payer MEDICAID, SELFPAY ==
[2021-08-02 10:54] VITALS: BP 222/189; PULSE 60; RESP 24; TEMP 36.6; O2SAT 98; BMI 30.5
--- NOTE | 2021-08-02 11:14 | EDS_ITS ---
HPI HPI - Psych History of Present Illness Chief Complaint: Suicidal Informant: patient Onset/Context/Timing Onset: Today Context: Gradual Onset Timing: Continuous Worsened by: Situational factors (Argument with psychiatrist office staff) Relieved by: Nothing Associated Symptoms Associated Symptoms - Psych: Positive for Suicidal Thoughts and Increased activity; Negative for Visual Hallucinations and Auditory Hallucinations Specific plan (suicidal thought): Hoped he would tripped down the stairs Narrative Narrative: Patient presents with a panic attack that began today. Patient states that his fibromyalgia pain became worse this morning which caused him to have a panic attack. Patient states he has been unable to control his panic attack. Patient states that this has caused him to have thoughts of harming himself. Patient states he was hoping he would tripped on the stairs when he walked down there this morning. Patient states that his panic attack was made worse by having an argument with his psychiatrist and their office staff. Patient denies any visual or auditory hallucinations. Patient denies any homicidal ideations. [facility] Medical History (Updated 08/02/21 @ 14:[address] Joaquín Guzman, ) Anxiety Bipolar disorder Fibromyalgia Mild intermittent chronic asthma without complication Home Medications albuterol sulfate 2.5 mg INHALATION Q4H PRN PRN 06/02/18 [History Last Taken Unknown] albuterol sulfate [Ventolin HFA] 2 puff INHALATION Q4H PRN PRN 06/02/18 [History Last Taken Unknown] cholecalciferol (vitamin D3) [Vitamin D3] 2,500 unit PO DAILY 06/02/18 [History Last Taken 06/01/18] multivitamin 1 ea PO DAILY 06/02/18 [History Last Taken Unknown] ondansetron HCl [Zofran] 4 mg PO Q8H PRN PRN 06/02/18 [History Last Taken Unknown] pantoprazole 40 mg PO DAILY 06/02/18 [History Last Taken Unknown] cyclobenzaprine [Flexeril] 10 mg PO TID 08/02/21 [History Last Taken Unknown] desvenlafaxine succinate [Pristiq] 50 mg PO DAILY 08/02/21 [History Last Taken Unknown] gabapentin 300 mg PO TID 08/02/21 [History Last Taken Unknown] quetiapine [Seroquel] 100 mg PO 1500 08/02/21 [History Last Taken Unknown] quetiapine [Seroquel] 100 mg PO DAILY 08/02/21 [History Last Taken Unknown] quetiapine [Seroquel] 150 mg PO QHS 08/02/21 [History Last Taken Unknown] Allergy/AdvReac Type Severity Reaction Status Date / Time cat dander Allergy itching, Verified 08/02/21 10:58 shortness of breath dog dander Allergy Unknown Verified 08/02/21 10:58 bupropion HCl AdvReac anxiety Verified 08/02/21 10:58 [From Wellbutrin] montelukast [From Singulair] AdvReac MS-like Verified 08/02/21 10:58 symptoms, difficulty w/ balance and walking COCKROACH DUST Allergy Itching Uncoded 08/02/21 10:58 Surgical History Hx of rhinoplasty Hx of tonsillectomy Hx of vasectomy Social History Smoking Status: Former smoker ROS ROS ED Constitutional Constitutional ED: Denies chills or fever(s) Eyes Eyes: Denies blurry vision or change in vision ENT ENT ED: Denies rhinorrhea or sore throat Cardiovascular Cardiovascular: Denies chest pain or palpitations Respiratory/Chest Respiratory/Chest: Denies cough or dyspnea Gastrointestinal Gastrointestinal: Denies nausea or vomiting Genitourinary Genitourinary ED: Denies dysuria or hematuria Musculoskeletal Musculoskeletal: Reports back pain and myalgias Integumentary Denies abscess or rash Neurologic Neurologic: Denies headache(s) or weakness Psychiatric Psychiatric: Reports anxiety and suicidal thoughts Allergic/Immunologic Allergic/Immunologic ED: Denies mouth swelling or urticaria EXAM Physical Exam Const Vital Signs: 08/02/21 10:54 Temperature 98 F Temperature Source Temporal Pulse Rate 60 Respiratory Rate 24 H Blood Pressure 222/189 H Blood Pressure Mean 200 Pulse Ox 98 Oxygen Delivery Method Room Air Positive well nourished and well developed General Appearance ED: well developed and NAD HEENT normocephalic and atraumatic Neck supple and no JVD Resp normal respiratory effort and clear to auscultation bilaterally Cardio no murmurs Rate: regular rate Rhythm: regular rhythm GI non-tender and non-distended Auscultation: normoactive bowel sounds Palpation: soft Extremity normal to inspection General Extremety ED: Negative for edema or tenderness General Extremity: Negative for edema Neuro oriented x3, CN's II-XII intact bilaterally and no sensory deficits noted Sensorium / Orientation: alert Motor Exam: strength 5/5 throughout Psych mental status grossly normal Activity / Motor Behavior: avoids eye contact Speech: minimal and soft Mood & Affect: anxious and blunted affect Thought Content: suicidality Skin Rashes: no rashes MDM MDM MDM Narrative Medical decision making narrative: Patient was given a dose of lorazepam here. CBC shows a slight leukocytosis of 12.1. Basic metabolic profile was essentially within normal limits. Serum alcohol level was normal. Urine tox urine was positive for cannabinoids but was otherwise negative. COVID-19 rapid antigen was obtained and was negative. Social work was in to evaluate the patient. They felt that the patient would benefit from inpatient treatment. They arrange [facility] at [facility]. Patient will be transferred there. Transfer form was filled out and signed. [place] slip was signed. Patient understood and was agreeable with the plan. All questions were answered. Lab Data Attestation: I reviewed the patient's lab results. Labs: Laboratory Results - last 24 hr 08/02/21 08/02/21 08/02/21 11:43 11:43 11:43 WBC 12.1 H RBC 4.78 Hgb 15.2 Hct 42.9 MCV 89.7 MCH 31.8 MCHC 35.4 RDW Std Deviation 40.4 RDW Coeff of Zak 12.2 Plt Count 236 MPV 9.5 Immature Gran % (Auto) 0.300 Neut % (Auto) 91.2 H Lymph % (Auto) 3.6 L Mercer % (Auto) 4.0 Eos % (Auto) 0.6 Baso % (Auto) 0.3 Absolute Neuts (auto) 11.1 H Absolute Lymphs (auto) 0.44 L Nucleated RBC % 0 Differential Comment COMMENT Sodium 140 Potassium 3.7 Chloride 109 H Carbon Dioxide 23.0 Anion Gap 8 BUN 20 H Creatinine 0.84 Estim Creat Clear Calc 106.38 Est GFR (MDRD) Af Amer 125 Est GFR (MDRD) Non-Af 103 BUN/Creatinine Ratio 23.8 H Glucose 118 H Calcium 9.2 Urine Opiates Screen Urine Methadone Screen Ur Barbiturates Screen Ur Phencyclidine Scrn Ur Amphetamines Screen MDMA (Ecstasy) Screen U Benzodiazepines Scrn Urine Cocaine Screen U Cannabinoids Screen Ur Drug Screen Comment Ethyl Alcohol 4.0 08/02/21 12:20 WBC RBC Hgb Hct MCV MCH MCHC RDW Std Deviation RDW Coeff of Zak Plt Count MPV Immature Gran % (Auto) Neut % (Auto) Lymph % (Auto) Mercer % (Auto) Eos % (Auto) Baso % (Auto) Absolute Neuts (auto) Absolute Lymphs (auto) Nucleated RBC % Differential Comment Sodium Potassium Chloride Carbon Dioxide Anion Gap BUN Creatinine Estim Creat Clear Calc Est GFR (MDRD) Af Amer Est GFR (MDRD) Non-Af BUN/Creatinine Ratio Glucose Calcium Urine Opiates Screen NEGATIVE Urine Methadone Screen NEGATIVE Ur Barbiturates Screen NEGATIVE Ur Phencyclidine Scrn NEGATIVE Ur Amphetamines Screen NEGATIVE MDMA (Ecstasy) Screen NEGATIVE U Benzodiazepines Scrn NEGATIVE Urine Cocaine Screen NEGATIVE U Cannabinoids Screen POSITIVE H Ur Drug Screen Comment Ethyl Alcohol Discharge Plan Triage Chief Complaint: Suicidal Other Complaint: Anxiety ED Provider: Joaquín Guzman Dx/Rx/DC Orders Clinical Impression: Anxiety, Suicidal ideation Prescriptions: No Action ondansetron HCl [Zofran] 4 MG tablet 4 mg PO Q8H PRN PRN (Reason: Nausea) RF: 0 pantoprazole 40 MG tablet 40 mg PO DAILY RF: 0 albuterol sulfate [Ventolin HFA] 1 INHALER inhaler 2 puff inhalation Q4H PRN PRN (Reason: Asthma) RF: 0 albuterol sulfate 2.5 MG/3 ML solution for nebulization 2.5 mg inhalation Q4H PRN PRN (Reason: Shortness Of Breath) RF: 0 multivitamin 1 EACH tablet 1 ea PO DAILY RF: 0 cholecalciferol (vitamin D3) [Vitamin D3] 1,000 UNIT tablet 2,500 unit PO DAILY RF: 0 quetiapine [Seroquel] 100 mg Tablet 100 mg PO DAILY RF: 0 quetiapine [Seroquel] 100 mg Tablet 150 mg PO QHS RF: 0 quetiapine [Seroquel] 100 mg Tablet 100 mg PO 1500 RF: 0 gabapentin 300 mg Tablet 300 mg PO TID RF: 0 desvenlafaxine succinate [Pristiq] 50 mg Tablet Extended Release 24 Hr 50 mg PO DAILY RF: 0 cyclobenzaprine [Flexeril] 10 mg Tablet 10 mg PO TID RF: 0 Primary Care Provider: Raheem Reed Referrals: Raheem Reed DO [Primary Care Provider] - Disposition Disposition: Psychiatric Hospital or Unit Discharge Location: [facility]
[2021-08-02] MEDS: LORazepam 2 MG/ML Syringe IM (11:43)
[2021-08-02 11:54] LABS: Absolute Lymphocyte Count 0.44 X10^3/uL (0.83-4.51); Absolute Neutrophil Count 11.1 X10^3/uL (2.0-7.7); Basophil# 0.04 X10^3/uL; Basophil% 0.3 % (0-1); Eosinophil# 0.07 X10^3/uL; Eosinophils% 0.6 % (0-5); Hematocrit 42.9 % (40-54); Hemoglobin 15.2 g/dL (13.0-16.5); Lymphocyte # 0.44 X10^3/ul (0.83-4.51); Lymphocyte % 3.6 % (19-41); Mean Corp Hgb Conc 35.4 g/dL (32-36); Mean Corpuscular Hgb 31.8 pg (27.0-32.0); Mean Corpuscular Volume 89.7 fL (80-94); Mean Platelet Vol. 9.5 fl (6.2-12.0); Monocyte# 0.49 X10^3/uL; NRBC Flagged by Analyzer 0 % (0-5); Neutrophil # 11.06 X10^3/uL (2.7-7.7); Neutrophil % 91.2 % (47-70); POSITIVE DIFFERENTIAL YES; Platelet Count 236 K/mm3 (150-450); RBC Distribution Width CV 12.2 % (11.6-14.6); RBC Distribution Width SD 40.4 fl (35.1-43.9); Red Blood Count 4.78 M/mm3 (4.6-6.2); White Blood Count 12.1 K/mm3 (4.4-11.0)
[2021-08-02 11:55] LABS: Differential Indicated SCAN CRITERIA MET
[2021-08-02 12:05] LABS: Anion Gap 8 (5-15); BUN 20 mg/dL (7-18); BUN/Creat Ratio 23.8 RATIO (10-20); Calcium,Total 9.2 mg/dL (8.5-10.1); Chloride 109 mmol/L (98-107); Creatinine, Serum 0.84 mg/dL (0.70-1.30); EST Glomerular Filtration Rate 103 mL/min (>60); Est Glom Filt Rate - Afr Amer 125 mL/min (>60); Estimated Creatinine Clearance 106.38 ml/min; Glucose 118 mg/dL (74-106); Potassium 3.7 mmol/L (3.5-5.1); Sodium Level 140 mmol/L (136-145)
--- NOTE | 2021-08-02 12:15 | ED.RN ---
spoke with charge entry specialist, social work, Christie and physician. pt does not need 1:1 staff sitter at this time. remains at bedside.
[2021-08-02 12:48] LABS: Amphetamine Urine VISTA NEGATIVE (<1000 ng/mL); Barbiturate Urine VISTA NEGATIVE (< 200 ng/mL); Benzodiazepine Urine VISTA NEGATIVE (< 200 ng/mL); Cocaine Urine VISTA NEGATIVE (< 300 ng/mL); Ecstacy Urine VISTA NEGATIVE (< 500 ng/mL); Methadone Urine VISTA NEGATIVE (< 300 ng/mL); PCP Urine VISTA NEGATIVE (< 25 ng/mL); THC Urine VISTA POSITIVE (< 50 ng/mL); Vista UDS pH Range 7
--- NOTE | 2021-08-02 13:04 | CM.ED ---
Social Work Note Social Work Psychiatric Assessment Reason for consult: Mental Health Informant(s): Pt, Pt?s Jenny Chief Complaint: Pt states that he had a panic attack at 7:00am this morning. Pt states that a couple events happened this morning. Pt states that he thought he had an appointment at 8:00am but really it was at 12:00pm so he went there 4 hours early. Pt states that he argued with his psychiatric social worker supervisor about missed appointments. Pt states that he was also trying to do laundry. Marital/Social History: Identified Gender: Male Sexual Orientation: Heterosexual Living Situation: Pt states that he lives with his and two step children in a house. Support/Resources: Pt states his and extended family History: None Education and Employment History: Pt states that he graduated high school at [employer]. Pt states no learning problems or IED. Pt states that he does have a Bachelor?s degree in Vietnamese Literature. Pt states that he is not currently employed. Mental Health Treatment/History: Pt states that he currently see?s a Psychologist and Nurse Practitioner through the [facility]. Pt states that he last saw hid Psychologist 2 weeks ago and his nurse practitioner 6 weeks ago. Pt states that he has missed appointments. Pt states that he his on psych medication and states he is on Seroquel and Pristiq. Pt states that he has seen counselors in the past, is not currently seeing one. Pt states that he has also been placed in Psychiatric Hospitals. Pt states the last time was in 1998. Pt states that he was in [facility] and then went to [place]. Pt states the he was in [place] twice. One being for four weeks and another for being three weeks. Pt states he thinks he has been Probated and states that one time he didn?t have insurance. Pt has had two significant psych placements that he has had to be Probated. Pt states that he has been diagnosed with Bipolar II and has been taking his medications as prescribed. Triggers/Stressors: Pt states ?many things, things that I mentioned previously.? Pt states that his routine has changed since kids are out of school. Pt states that his is looking for a new job and states that he is in a lot of pain. Pt states that the pain is from his shoulders to his ankles. Pt states that he has had chronic pain. Pt states that he was seeing Dr. Lema for pain management but states he is no longer seeing him. Pt states that he was getting injections in his lower back and states that it didn?t help so he told the doctor that. Pt states that he would go to his appointments and then was told they had no recall of appointments. Pt states that he as an appointment with a different doctor, Dr. Zavaleta through the [facility]. Coping Skills: Pt states ?can?t use right now.? Pt states that he does Stretching exercise routine, structured breathing. Abuse Issues: None Substance Abuse Hx: Pt states that he used to drink ETOH. Pt states that he currently uses Medical Marijuana. Pt states he last used Marijuana this morning at 9:00am. Pt states ?it didn?t do what I needed it to do.? Pt states that the Marijuana costs between $200-300 per ounce and he cannot afford it as he is not working. Risk to Self/Others: ? Suicidal: Pt states that he had suicidal thoughts today. Pt states that he was hoping to fall down the stairs today. Pt states no plans to currently harm self. Pt states ?but I don?t want to be like this.? Pt states he does have history of suicidal attempts. Pt states he has had 3 major attempts and 4 other attempts that ?don?t really count.? Pt states that in 1998 he took all of his pills for the month on the first day and was in the hospital for conversions. Pt states that in 1998 or before he also had another OD attempt and had a suicide attempt by Carbon Monoxide. Pt states that he was in his garage and closed the doors and windows and drank Alcohol. Pt states that he passed out and had Carbon Monoxide Poising and spent 5 days in the ICU at [facility] and spent four weeks in the [facility]. Pt states he ?didn?t think about? putting anything in the tail pipe to affect the Catalytic Converter. SW asked pt on a scale of 1 to 10 with 1 being the lowest and 10 being the highest, what his rate is for suicidal intent. Pt state 3. Pt states to help him he thinks he needs medication and counseling. Pt states that he also has been to [facility] before and does have history of cutting self. ? Homicidal: None ? Violence: None. Pt state that he internalizes, ?not good with dealing with things that cause violence.? Pt states ?I am the problem.? Pt states that it is ?me that is here, me that is not working, me that cannot read or write good enough.? Mental Status Exam: Orientation: Pt is alert and orientated x4. Memory: Fair Appearance/General Behavior: Clean/appropriate. Pt was very restless during assessment and unable to engage completely in conversation due to restlessness. When this worker entered pt?s room, pt had his sheets pulled up over his head. Pt did not open eyes during conversation Mood/Affect: Anxious, Agitated Communication Pattern: Responds to questions, does not initiate, limited answers, Pt using few words that can come across as rude. Pt would not elaborate. Thought Process: Perseverated on pain General Intellectual Functioning: Average Judgment: Poor Insight: Poor Pt gave SW permission to speak to his . SW spoke with pt?s Jenny. Jenny states she has some concerns with pt. Jenny states ?this happens more than she knows.? Jenny states that she works at a school. Jenny states that they are in a bad financial situation. Jenny states that pt uses medical marijuana and can?t afford it. Jenny states that pt thrives in a routine. Jenny states that pt feels extremely guilt about not providing. Jenny states that pt is upset about disability. Jenny states that pt has quadruple vision and pt feels like a burden to her. Pt also has negative self talk. Jenny states that pt does not have enough to help with pt. Jenny states that pt see?s a Dr. Zuniga but doesn?t trust him yet. Jenny states that pt will have Hyper Manic/Bárbara and then have anger. Jenny states pt will have chills, freezing, pulse is out of control. Jenny states that pt?s pain never ends. Jenny states that pt is on Gabapentin. Jenny states that pt is high strung and feels guilt. Jenny states that things ?pile on top? including ?Guilt, pressure, Conversion disorder.? Jenny states that she is worried about suicide for pt ?once a while.? Jenny states when pt?s Bipolar gets triggered she will have pt go to his room to be away from the kids. Jenny states that the kid are aware when pt is in pain and they can feel the presence. Pt is restless and agitated and per has guilt. Pt was unable to engage in conversation due to restlessness. Due to pt?s mental health, pt has the inability to maintain a job, function due to stress and currently has stress due to routine changes. MARIANNA discussed with MD Guzman who recommends inpatient psychiatric hospitalization for Crisis Stabilization and Medication Management. MARIANNA updated pt and Jenny that this worker will work on inpatient Psychiatric Hospitalization. Plan: Inpatient Psychiatric Hospitalization Sue Rosario FEED PROJECT ENGINEER, PATIENT SCHEDULING COORDINATOR
--- NOTE | 2021-08-02 14:22 | CM.ED ---
Social Work Note MARIANNA received call from Carin at [facility] stating they can accept pt. Accepting physician is Dr. Burton. RN to RN is [phone]. Unit will be assigned once pt admits to facility. [facility] has arranged transportation for 3:00pm. MARIANNA updated physician and RN on acceptance to [facility]. MARIANNA updated pt and pt's Jenny on acceptance to [facility] and transportation time. Sue Rosario [employer], [employer]
[2021-08-02 14:33] VITALS: BP 96/63; PULSE 113; RESP 16; TEMP 37.2; O2SAT 94
[2021-08-02] MEDS: cycloBENZAPRine HCl 10 MG Tablet PO (14:47)
[2021-08-02] MEDS: QUEtiapine 100 MG Tablet PO (14:47)
[2021-08-02] MEDS: Gabapentin 600 MG Tablet 300 MG PO (14:47)
== END 2021-08-02 15:11 ==
PROVIDERS: Emergency Provider Emergency Medicine; PCP Student in an Organized Health Care Education/Training Program; Visit Provider Emergency Medicine
DX: F41.9 Anxiety disorder, unspecified (principal); F31.9 Bipolar disorder, unspecified; R45.851 Suicidal ideations; Z87.891 Personal history of nicotine dependence; Z79.899 Other long term (current) drug therapy
CPT/HCPCS: 36415; 80048; 80307; 82077; 85025; 87811; 96372; 99285

== ENCOUNTER → 2022-11-26 | Outpatient (CLI) | payer MEDICAID, SELFPAY ==
--- NOTE | 2022-11-25 | FLU_PTH ---
PATIENT: SOFIYA CHAMBERS LOC: PATIENCE U#:[id number] AGE/SX: 52/M ROOM: RE11/26/[address]: Dr. Vivian Vora MD : 1970 BED: DIS: 11/26/2022 SPEC #: [id number] RECD: 11/26/22 13:04 STATUS: SHELIA REMarti #: [id number] HILTON: 11/25/22 00:[address]: Vivian Vora DEPT: CYTOLOGY RECD BY: Ishaan Marrufo ENTERED: 11/26/22 13:04 SP TYPE: Fluid OTHR DR: Dr. Raheem Reed DO Tissues: A - Thyroid gland, NOS B - Thyroid gland, NOS Procedures: Special Stain Group II Surgery Specimen Level IV Cytospin Fluid HEADER OPERATION: Fine needle aspiration right thyroid PRE-OP DIAGNOSIS: Abnormal thyroid ultrasound TISSUE SUBMITTED: A - FNA right thyroid fluid, B - FNA right thyroid x8 slides DIAGNOSIS CYTOLOGY A. Right thyroid fluid, fine needle aspiration (cytospin and cell block): Negative for malignant cells. See comment. B. Right thyroid fluid, fine needle aspiration (smears): Consistent with benign follicular/colloid nodule ([place] Category II). See comment. SJ:tashia 11/27/2022 COMMENT A. Clusters of benign follicular cells are noted. B. The specimen is paucicellular, however, meets the minimal criteria for adequacy of the specimen. Correlation with clinical, radiologic findings and appropriate follow up are necessary. The [place] System for thyroid diagnostic categorization was used in the evaluation of this case. CYTOLOGY STUDY Slides are reviewed. CYTOLOGY GROSS A - Received is 30 ml of dark red fluid labeled with the patient's name and and designated per the requisition as right thyroid. Submitted for cytology preparation including cell block. B - Received are eight smears labeled with the patient's name and designated per the requisition as right thyroid. Submitted for staining. / tashia 11/26/2022 TC:5 CPT: 66329 x2, 18881
== END | disposition home or self-care (01) ==
LOC: LABSPEC 12:24
PROVIDERS: PCP Student in an Organized Health Care Education/Training Program; Referring Provider Surgery; Visit Provider Surgery
DX: E04.1 Nontoxic single thyroid nodule (principal)
CPT/HCPCS: 88108; 88305; 88313